=== PATIENT | female | born 1960 | race Caucasian/White ===

== ENCOUNTER 2016-12-20 10:04 | Inpatient (IN) | payer MEDICARE, OTHER ==
[~2016-12-20] VITALS: Ht 152.4 cm; Wt 49.4 kg
[2016-12-20] VITALS (15 sets, daily range): BP systolic 83–152; BP diastolic 39–83; PULSE 80–92; RESP 18–20; TEMP 97.6; Ht 152.4 cm; Wt 49.4 kg
[~2016-12-20 10:04] MED LIST: AMLO-147 PO; APR50 PO; FOLI-49 PO; LANT3I SC; LISI10TA2 PO; METO-429 PO; NEPH PO; PANT40TA4 PO
[2016-12-20] MEDS ORDERED: morphine 4 MG/ML VIAL IV STA (10:38)
[2016-12-20] MEDS ORDERED: ONDANSETRON 4 MG INJ IV STA (10:38)
[2016-12-20] MEDS ORDERED: NITROGLYCERIN 2% 1 GM OINT PKT TD STA (10:38)
--- NOTE | 2016-12-20 11:03 | RADRPT ---
PROCEDURE: XR Chest. CLINICAL INDICATION: chest pain TECHNIQUE: Single frontal view of the chest was obtained COMPARISON: 09/26/2016 FINDINGS: The heart is normal in size. There is a focal calcification in the aortic arch. There is mild left lower lobe scarring. The lungs are otherwise clear. There is no pleural effusion or pneumothorax. RPTAT: AA IMPRESSION: No acute disease. Mild left lower lobe scarring. .Jose Alejandro Hameed MD, MD Date Time Electronically viewed and signed by .Jose Alejandro Hameed MD, MD on 12/20/2016 11:03 .S/
--- NOTE | 2016-12-20 11:29 | ERA ---
ER Documentation Chief Complaint Date/Time DATE: 12/20/16 TIME: 11:24 Chief Complaint LEFT ARM PAIN X4 DAYS, NON-WORKING FISTULA ON LEFT ARM HPI 56-year-old female history of end-stage renal disease on dialysis Wednesday and Wednesday who presents with chest pain and arm pain. She describes 4 days of symptoms. The patient has a nonworking fistula to the left upper extremity. She describes moderate to severe throbbing pain to this site as well as her left chest that she describes it as pressure-like. No mid back pain, no migratory pain. The pain is somewhat worse to touch. Last dialysis was Wednesday, complete course. She denies any fevers chills or cough, no pleuritic pain. ROS All systems reviewed and are negative except as per history of present illness. Medications Home Meds Active Scripts Hydralazine Hcl* (Hydralazine Hcl*) 50 Mg Tab, 100 MG PO TID for 30 Days, TAB Prov:SHIRA BOBO NP 09/29/16 Metoprolol Tartrate* (Lopressor*) 50 Mg Tab, 50 MG PO BID for 30 Days, TAB Prov:SHIRA BOBO NP 09/29/16 Amlodipine Besylate* (Amlodipine Besylate*) 10 Mg Tablet, 10 MG PO DAILY for 30 Days, TAB Prov:SHIRA BOBO NP 09/29/16 Reported Medications Insulin Glargine* (Lantus*) 100 Unit/Ml Soln, 18 UNIT SC QHS, #1 VIAL 09/26/16 Lisinopril* (Lisinopril*) 10 Mg Tablet, 10 MG PO BID, #30 TAB 09/26/16 Pantoprazole* (Pantoprazole*) 40 Mg Tablet.dr, 40 MG PO DAILY, TAB 09/26/16 Multivit/Ca Carb/B Cmplx/Fa* (Tory-Deven*) 1 Tab Tab, 1 TAB PO DAILY, TAB 08/22/14 Folic Acid* (Folic Acid*) 1 Mg Tablet, 1 MG PO DAILY, TAB 08/22/14 Allergies Allergies: Coded Allergies: cortisone (Verified Allergy, Unknown, 09/26/16) VOMIT hydrocodone (Verified Adverse Reaction, Mild, nausea, 09/26/16) PMhx/Soc History of Surgery: Yes (cholecystectomy, r av shunt placement (2months ago)) Anesthesia Reaction: No Hx Neurological Disorder: No Hx Respiratory Disorders: No Hx Cardiac Disorders: Yes (HTN) Hx Psychiatric Problems: No Hx Miscellaneous Medical Probl: Yes (Insulin-dependent diabetes,HTN, on diaylsis MWF for past 3years) Hx Alcohol Use: No Hx Substance Use: No Hx Tobacco Use: Yes Smoking Status: Never smoker FmHx Family History: No diabetes Physical Exam Vitals Vital Signs Date Time Temp Pulse Resp B/P Pulse Ox O2 Delivery O2 Flow Rate FiO2 12/20/16 12:20 69 18 138/66 12/20/16 11:08 Nasal Cannula 2 12/20/16 11:08 86 18 198/78 98 Nasal Cannula 2.0 12/20/16 10:08 97.6 94 18 200/83 98 Physical Exam General: Much older than stated age, slightly uncomfortable secondary to pain Head: Normocephalic, atraumatic. Eyes: Pupils equally reactive, EOM intact ENT: Moist mucous membranes Neck: Supple, no lymphadenopathy Respiratory: Lungs clear bilaterally, no distress Cardiovascular: RRR, no murmurs, rubs, or gallops Abdominal: Soft, non-tender, non-distended, no peritoneal signs : Deferred MSK: Right upper extremity AV fistula with good bruit and thrill. Left upper extremity AV fistula appears to be clotted with no thrill, soft tissue tenderness diffusely along the left upper extremity mostly around the fistula site, no unilateral swelling, 5 out of 5 hand grasp strength, no evidence of compartment syndrome. Neurologic: Alert and oriented, moving all extremities, normal speech, no focal weakness, no cerebellar signs Skin: No rash Psych: Normal mood Result Diagram: 12/20/16 1130 12/20/16 1130 Results 24 hrs Laboratory Tests Test 12/20/16 11:30 Activated Partial Thromboplast Time 29.0Sec Anion Gap 24 Basophils # 0.110^3/ul Basophils % 0.4% Blood Morphology Comment Blood Urea Nitrogen 52mg/dl Calcium Level 8.2mg/dl Carbon Dioxide Level 24mmol/L Chloride Level 93mmol/L Creatinine 8.23mg/dl Eosinophils # 1.110^3/ul Eosinophils % 8.4% Glucose Level 232mg/dl Hematocrit 31.5% Hemoglobin 10.8g/dl INR International Normalized Ratio 0.86 Lymphocytes # 1.610^3/ul Lymphocytes % 12.2% Mean Corpuscular Hemoglobin 33.3pg Mean Corpuscular Hemoglobin Concent 34.2g/dl Mean Corpuscular Volume 97.3fl Mean Platelet Volume 10.6fl Monocytes # 0.710^3/ul Monocytes % 5.7% Neutrophils # 9.410^3/ul Neutrophils % 73.3% Nucleated Red Blood Cells # 0.010^3/ul Nucleated Red Blood Cells % 0.0/100WBC Platelet Count 61120^3/UL Potassium Level 6.9mmol/L Prothrombin Time 11.7Sec Prothrombin Time Ratio 0.9 Red Blood Count 3.2410^6/ul Red Cell Distribution Width 13.7% Sodium Level 134mmol/L Troponin I < 0.012ng/ml White Blood Count 12.910^3/ul Current Medications Medications (Trade) Dose Ordered Sig/Milagro Route PRN Reason Start Time Stop Time Status Last Admin Dose Admin Nitroglycerin (Nitroglycerin 2% Oint) 1 inch ONCE STAT TD 12/20/16 10:38 12/20/16 10:42 DC 12/20/16 11:13 Morphine Sulfate (morphine) 4 mg ONCE STAT IV 12/20/16 10:38 12/20/16 10:42 DC 12/20/16 11:12 Ondansetron HCl (Zofran Inj) 4 mg ONCE STAT IV 12/20/16 10:38 12/20/16 10:42 DC 12/20/16 11:13 Aspirin 324 mg 324 mg ONCE ONCE PO 12/20/16 11:30 12/20/16 11:31 DC 12/20/16 12:11 Calcium Gluconate/ Sodium Chloride (Ca Gluc/NS) 110 ml @ 110 mls/hr ONCE ONCE IVPB 12/20/16 12:00 12/20/16 12:59 Labetalol HCl (Labetalol) 20 mg ONCE ONCE IV 12/20/16 12:00 12/20/16 12:01 DC 12/20/16 12:06 Insulin Human Regular (Humulin R) 10 unit ONCE STAT IV 12/20/16 12:10 12/20/16 12:11 DC Dextrose (D50w Syringe) 50 ml ONCE STAT IV 12/20/16 12:10 12/20/16 12:11 DC Sodium Bicarbonate (Na Bicarb 8.4% Syg) 50 ml ONCE STAT IV 12/20/16 12:10 12/20/16 12:11 DC Sodium Polystyrene Sulfonate (Kayexalate) 30 gm ONCE STAT PO 12/20/16 12:33 12/20/16 12:35 DC Ondansetron HCl (Zofran Inj) 4 mg ER BRIDGE PRN IV NAUSEA AND/OR VOMITING 12/20/16 13:00 12/21/16 12:59 Acetaminophen (Tylenol Tab) 650 mg ER BRIDGE PRN PO MILD PAIN/FEVER 12/20/16 13:00 12/21/16 12:59 Procedures/MDM EKG, MONITORS, & DIAGNOSTIC IMAGING: EKG: I reviewed and interpreted a 12-lead EKG. Rhythm: Normal sinus rhythm Ectopy: None Intervals: No abnormalities ST segments: No elevations or depressions T waves: No contiguous inversions, slightly peaked T waves Repeat EKG: EKG: I reviewed and interpreted a 12-lead EKG. Rhythm: Normal sinus rhythm Ectopy: None Intervals: No abnormalities ST segments: No elevations or depressions T waves: No contiguous inversions, slightly peaked T waves Chest x-ray: I reviewed and interpreted a 1 view of the chest Mediastinum: No enlargement Cardiac silhouette: No cardiomegaly Airspace: Clear lung lynn bilaterally without evidence of pneumothorax Bones: No evidence of fracture Left upper extremity arterial duplex: Thrombosed AV fistula LAB INTERPRETATION: Hyperkalemia, negative troponin MEDICAL DECISION MAKING: The patient's history, physical exam and clinical presentation is concerning for possible cardiogenic etiology and acute coronary syndrome. The patient also seems to have a lot of reproducible tenderness on exam to the left upper extremity and chest wall. Unclear significance. The patient is having a lot of pain along her nonfunctioning AV fistula. Consider thrombosis, no evidence of DVT. This could be radiation of pain secondary to cardiac etiology. She has no mid back pain that would be concerning for dissection additionally she has 4 days of chest pain. This makes acute dissection less likely. The patient 's blood pressure is elevated but again given the duration of symptoms, reproducible symptoms I do not feel the patient requires a CT of the chest with contrast. Based on the patient's clinical exam and history and risk factors, I have a much lower clinical concern for pulmonary embolism, acute aortic dissection, pneumothorax, pneumonia, cardiac tamponade HEART Score: 4 MACE Rate: 16.6% Shared Decision Making: We had a conversation regarding risk stratification, MACE rate, and the risks, benefits, alternatives of disposition planning options. Disposition planning: Would recommend inpatient hospitalization ER COURSE: Nitroglycerin and morphine provided. Aspirin provided after chest x-ray shows normal mediastinum. The patient had EKG changes consistent with hyperkalemia. Calcium provided before potassium result. Potassium is elevated. Patient given insulin, dextrose, bicarb, Kayexalate. Her guest specialist was notified to arrange for dialysis. The patient does have a thrombosed AV fistula, this appears to be a subacute process. Her pain is well controlled. This is the likely source of her focal pain to the left upper extremity. Again low concern for dissection. Nonemergent vascular surgery consultation will be arranged by admitting team. Labetalol provided for hypertension I kept the patient and/or family informed of laboratory and diagnostic imaging results throughout the emergency room course. DISPOSITION PLAN: Telemetry admission CONSULTATION: Accepting care team and consultations: I discussed the current laboratory data, diagnostic imaging and emergency care provided. Admitting team: Dr. Padilla Calderon, her primary care provider Admitting team indication: Insurance directed, Medicare The patient is awaiting urgent dialysis. Departure Diagnosis: Primary Impression: Hyperkalemia Additional Impressions: Hemodialysis AV fistula thrombosis Qualified Code: T82.868A - Hemodialysis AV fistula thrombosis, initial encounter Chest pain Qualified Code: R07.9 - Chest pain, unspecified type End stage renal disease on dialysis Hypertensive urgency Condition: Stable ARACELI MAC MD Dec 20, 2016 11:29
[2016-12-20] MEDS ORDERED: ASPIRIN 81 MG TAB PO ONE (11:30)
--- NOTE | 2016-12-20 11:51 | RADRPT ---
PROCEDURE: US left upper extremity AV fistula/graft CLINICAL INDICATION: Renal failure TECHNIQUE: Multiple sonographic images of the left upper extremity arteries, veins and hemodialysi s access was obtained utilizing grayscale, color-flow, compressive sonography and doppler imaging. The images were reviewed on a PACS workstation. COMPARISON: None. FINDINGS: There is a left upper extremity AV fistula is thrombosed. IMPRESSION: Thrombosed left arm AV fistula. RPTAT: AA .Jose Alejandro Hameed MD, Date Time Electronically viewed and signed by .Jose Alejandro Hameed MD, on 12/20/2016 11:51 .S/
[2016-12-20 11:56] LABS: BASOPHIL # 0.1 10^3/ul (0.0-0.1); BASOPHILS % 0.4 % (0.0-2.0); EOSINOPHILS # 1.1 10^3/ul (0.0-0.5); EOSINOPHILS % 8.4 % (0.0-7.0); HEMATOCRIT 31.5 % (37.0-47.0); HEMOGLOBIN 10.8 g/dl (12.0-16.0); LYMPHOCYTES # 1.6 10^3/ul (0.8-2.9); LYMPHOCYTES % 12.2 % (15.0-51.0); MEAN CORPUSCULAR HEMOGLOBIN 33.3 pg (29.0-33.0); MEAN CORPUSCULAR HGB CONC 34.2 g/dl (32.0-37.0); MEAN CORPUSCULAR VOLUME 97.3 fl (82.0-101.0); MEAN PLATELET VOLUME 10.6 fl (7.4-10.4); MONOCYTE # 0.7 10^3/ul (0.3-0.9); MONOCYTES % 5.7 % (0.0-11.0); NEUTROPHIL # 9.4 10^3/ul (1.6-7.5); NEUTROPHILS % 73.3 % (39.0-77.0); PLATELET COUNT 178 10^3/UL (140-440); RED BLOOD COUNT 3.24 10^6/ul (4.20-5.40); RED CELL DISTRIBUTION WIDTH 13.7 % (11.5-14.5); UNCORRECTED WBC 12.9 10^3/ul (4.8-10.8); WHITE BLOOD COUNT 12.9 10^3/ul (4.8-10.8)
[2016-12-20 11:57] LABS: CONDITION 1
[2016-12-20] MEDS ORDERED: LABETALOL HCL 20MG INJ IV ONE (12:00)
[2016-12-20] MEDS ORDERED: CALCIUM GLUCONATE 10% 1 GM in SOD CHLORIDE 0.9% 100 ML IVPB ONE (12:00)
[2016-12-20 12:02] LABS: CHLORIDE 93 mmol/L (97-110); SODIUM 134 mmol/L (135-144)
[2016-12-20 12:04] LABS: INR 0.86; PROTIME 11.7 Sec (12.2-14.2); PT RATIO 0.9
[2016-12-20 12:05] LABS: BLOOD UREA NITROGEN 52 mg/dl (7-20); CARBON DIOXIDE 24 mmol/L (21-31); CREATININE 8.23 mg/dl (0.44-1.00)
[2016-12-20 12:06] LABS: CALCIUM 8.2 mg/dl (8.4-10.2); GLUCOSE 232 mg/dl (70-220)
[2016-12-20 12:08] LABS: ANION GAP 24 (8-16); POTASSIUM 6.9 mmol/L (3.5-5.1)
[2016-12-20] MEDS ORDERED: INSULIN REGULAR, HUMAN 100 UNIT/1 ML 3ML VIAL IV STA (12:10)
[2016-12-20] MEDS ORDERED: NA BICARBONATE 8.4% 50 ML SYG IV STA (12:10)
[2016-12-20] MEDS ORDERED: DEXTROSE 50% 50 ML SYRINGE IV STA (12:10)
[2016-12-20 12:18] LABS: TROPONIN-I < 0.012 ng/ml (0.00-0.12)
[2016-12-20] MEDS ORDERED: NA POLYST SULFON 15 GM/60 ML BTL PO STA (12:33)
[2016-12-20] MEDS ORDERED: ONDANSETRON 4 MG INJ IV PRN ×2 (13:00→16:30)
[2016-12-20] MEDS ORDERED: ACETAMINOPHEN 325 MG TAB PO PRN ×2 (13:00→16:30)
--- NOTE | 2016-12-20 15:33 | QN ---
Documentation Comment [id number] hp DORINA BECKER MD Dec 20, 2016 15:33
[2016-12-20] MEDS ORDERED: ACETAMINOPHEN 650 MG SUPP PR PRN (16:30)
[2016-12-20] MEDS ORDERED: BISACODYL (EC) 5 MG TAB PO PRN (16:30)
[2016-12-20] MEDS ORDERED: DOCUSATE SODIUM 100 MG CAP PO PRN (16:30)
[2016-12-20] MEDS ORDERED: NACL 0.9% 3 ML SYG IV SCH (16:30)
[2016-12-20] MEDS ORDERED: GLUCAGON 1 MG INJ IM PRN (17:00)
[2016-12-20] MEDS ORDERED: DEXTROSE 50% 50 ML SYRINGE IV PRN ×2 (17:00)
[2016-12-20] MEDS ORDERED: GLUCOSE GEL 15 GRAM TUBE BUCCAL PRN (17:00)
[2016-12-20] MEDS ORDERED: GLUCOSE GEL 15 GRAM TUBE PO PRN ×2 (17:00)
[2016-12-20] MEDS: CEFTRIAXONE 1 GM/NS 50 ML IVPB SCH (17:19)
[2016-12-20] MEDS: HYDROmorphONE 1 MG/ML SYG IV PRN (17:19)
[2016-12-20 17:20] LABS: CREATINE KINASE 108 IU/L (23-200)
[2016-12-20 17:29] LABS: CK-MB 4.03 ng/ml (0.0-2.4)
[2016-12-20 17:34] LABS: TROPONIN-I < 0.012 ng/ml (0.00-0.12)
[2016-12-20] MEDS: INSULIN ASPART [NOVOLOG] 3 ML PEN SC SCH ×2 (18:31→22:45)
[2016-12-20] MEDS: METOCLOPRAMIDE 10 MG INJ IV PRN (19:38)
[2016-12-20] MEDS ORDERED: INSULIN GLARGINE [LANtus] 3 ML PEN SC SCH (21:00)
[2016-12-20 22:40] LABS: CREATINE KINASE 111 IU/L (23-200)
[2016-12-20] MEDS: ONDANSETRON 4 MG INJ IV PRN (22:41)
[2016-12-20] MEDS: LISINOPRIL 10 MG TAB PO SCH (22:41)
[2016-12-20] MEDS: METOPROLOL 50 MG TAB PO SCH (22:42)
[2016-12-20] MEDS: HEPARIN 5,000 UNIT/0.5 ML SYG SC SCH (22:44)
[2016-12-20 22:50] LABS: CK-MB 3.57 ng/ml (0.0-2.4)
[2016-12-20 23:09] LABS: TROPONIN-I < 0.012 ng/ml (0.00-0.12)
[2016-12-21] VITALS (13 sets, daily range): BP systolic 105–137; BP diastolic 51–62; PULSE 63–81; RESP 17–20
[2016-12-21] MEDS: ZOLPIDEM 5 MG TAB PO PRN ×2 (02:01→23:31)
[2016-12-21] MEDS: PANTOPRAZOLE (EC) 40 MG TAB PO SCH (05:40)
[2016-12-21] MEDS: METOCLOPRAMIDE 10 MG INJ IV PRN (05:43)
--- NOTE | 2016-12-21 06:53 | HP ---
DATE OF ADMISSION: 12/20/2016 HISTORY OF PRESENT ILLNESS: The patient with history of ESRD, hypertension, diabetes mellitus, presented with left upper extremity AV graft pain, site pain and swelling going all the way to the hand and also to the breast area. Patient is going to be admitted for further management. PAST MEDICAL HISTORY: Positive for hypertension, ESRD, diabetes mellitus, anemia, history of multiple AV valve thrombectomy, history of diabetic nephropathy, retinopathy, neuropathy, history of multiple AV graft revision, history of AV fistula placement in the right upper extremity, clotted AV graft in the upper extremity, history of catheter in the past placement and removal. ALLERGY HISTORY: CORTISONE AND HYDROCODONE. SOCIAL HISTORY: Negative. FAMILY HISTORY: Noncontributory. MEDICATION HISTORY: Positive for, the patient is on: 1. Amlodipine. 2. Folic acid. 3. Hydralazine. 4. Insulin. 5. Lisinopril. 6. Metoprolol. 7. Multiple vitamins. 8. Protonix. REVIEW OF SYSTEMS: HEENT: Unremarkable. RESPIRATORY: Unremarkable. CARDIOVASCULAR: Unremarkable. ABDOMEN: As mentioned above, pain in the upper left side of the abdomen and chest wall, better now. EXTREMITIES: Pain in the left upper extremity, to the hand noted. Extremities unremarkable. CENTRAL NERVOUS SYSTEM: Unremarkable. PHYSICAL EXAMINATION: GENERAL: The patient is awake, alert. VITAL SIGNS: Pulse 72, blood pressure 132/66. HEAD: Atraumatic, normocephalic. Pupils equal, reactive to light. NECK: Supple. No JVD. LUNGS: Clear. CARDIOVASCULAR: S1, S2 is normal. Systolic murmur. ABDOMEN: Soft, nontender. Bowel sounds present. No palpable mass or hepatosplenomegaly. EXTREMITIES: No cyanosis, clubbing. Edema positive. The patient has a fistula in the right upper extremity working well. Left arm has a clotted graft that is painful on touch and tenderness. CENTRAL NERVOUS SYSTEM: The patient is awake, alert, no focal deficit. LABORATORY DATA: Patient has WBC 12.9, hematocrit 31.5, platelet count of . Potassium 6.2, sodium 134. BUN 52, creatinine 8.23, glucose 232. The patient' s chest x-ray shows no acute disease, mild left lower lobe scarring, thrombosed left upper arm AV fistula with ultrasound. IMPRESSION: 1. Left arm pain, rule out phlebitis. Rule out infected arteriovenous fistula. 2. Hyperkalemia. 3. Hypertension. 4. Diabetes mellitus. 5. Anemia. 6. End-stage renal disease. 7. Multiple revisions thrombectomy. 8. Electrolyte imbalance. PLAN: patient renal diet, hemodialysis, Kayexalate, antibiotic, vascular surgery consultation with Dr. Maxi Gu and Dr. Alonzo who has placed his AV fistula Dictated By: DORINA BECKER MD BS/NTS Conf#: [id number] DID#: [id number] MTDD
[2016-12-21 07:32] LABS: BASOPHILS % 0.5 % (0.0-2.0); EOSINOPHILS # 0.5 10^3/ul (0.0-0.5); EOSINOPHILS % 6.2 % (0.0-7.0); HEMATOCRIT 28.2 % (37.0-47.0); HEMOGLOBIN 9.7 g/dl (12.0-16.0); LYMPHOCYTES # 1.7 10^3/ul (0.8-2.9); LYMPHOCYTES % 18.7 % (15.0-51.0); MEAN CORPUSCULAR HEMOGLOBIN 33.8 pg (29.0-33.0); MEAN CORPUSCULAR HGB CONC 34.3 g/dl (32.0-37.0); MEAN CORPUSCULAR VOLUME 98.6 fl (82.0-101.0); MEAN PLATELET VOLUME 10.2 fl (7.4-10.4); MONOCYTE # 0.7 10^3/ul (0.3-0.9); MONOCYTES % 7.7 % (0.0-11.0); NEUTROPHIL # 5.9 10^3/ul (1.6-7.5); NEUTROPHILS % 66.9 % (39.0-77.0); PLATELET COUNT 152 10^3/UL (140-440); RED BLOOD COUNT 2.86 10^6/ul (4.20-5.40); RED CELL DISTRIBUTION WIDTH 13.7 % (11.5-14.5); UNCORRECTED WBC 8.8 10^3/ul (4.8-10.8); WHITE BLOOD COUNT 8.8 10^3/ul (4.8-10.8)
[2016-12-21 07:35] LABS: CONDITION 1
[2016-12-21 07:51] LABS: POTASSIUM 4.3 mmol/L (3.5-5.1)
[2016-12-21 07:54] LABS: CREATININE 5.21 mg/dl (0.44-1.00)
[2016-12-21 07:55] LABS: CALCIUM 8.1 mg/dl (8.4-10.2)
[2016-12-21] MEDS: INSULIN ASPART [NOVOLOG] 3 ML PEN SC SCH ×5 (07:55→21:00)
[2016-12-21] MEDS: FOLIC ACID 1 MG TAB PO SCH (08:16)
[2016-12-21] MEDS: MULTIVIT/CA CARB/B CMPLX/FA TAB PO SCH (08:16)
[2016-12-21] MEDS: METOPROLOL 50 MG TAB PO SCH ×2 (08:17→21:38)
[2016-12-21] MEDS: AMLODIPINE 10 MG TAB PO SCH (08:18)
[2016-12-21] MEDS: LISINOPRIL 10 MG TAB PO SCH ×2 (08:18→21:38)
[2016-12-21] MEDS: HEPARIN 5,000 UNIT/0.5 ML SYG SC SCH ×2 (08:19→21:37)
[2016-12-21] MEDS ORDERED: PANTOPRAZOLE (EC) 40 MG TAB PO SCH (09:00)
[2016-12-21] MEDS ORDERED: ENOXAPARIN 30 MG/0.3 ML SYG SC SCH (09:00)
[2016-12-21] MEDS ORDERED: CEFTRIAXONE 1 GM INJ IVPB SCH (09:00)
[2016-12-21] MEDS ORDERED: VANCOMYCIN 1 GM (PMX) 250 ML IVPB SCH (14:00)
--- NOTE | 2016-12-21 15:39 | RADRPT ---
PROCEDURE: Bilateral lower extremity venous mapping. CLINICAL INDICATION: Preoperative for CABG. TECHNIQUE: The greater saphenous vein was evaluated bilaterally with ultrasound in the axial and s agittal planes. Diameter of the veins were determined as indicated below. COMPARISON: No prior studies are available for comparison. FINDINGS: Right greater saphenous vein: At groin: 0.42 cm. Upper thigh: 0.16 cm. Mid thigh: 0.16 cm. Lower thigh: 0.19 cm. At knee: 0.23 cm. Upper calf: 0.14 cm. Mid calf: 0.19 cm. Ankle: 0.14 cm. Left greater saphenous vein: At groin: 0.36 cm. Upper thigh: 0.27 cm. Mid thigh: 0.20 cm. Lower thigh: 0.17 cm. At knee: 0.16 cm. Upper calf: 0.14 cm. Mid calf: 0.20 cm. Ankle: 0.21 cm. The greater saphenous veins demonstrate normal compressibility with no thrombus or occlusion. IMPRESSION: 1. Diameter of greater saphenous veins as indicated above. 2. No thrombosis visualized. RPTAT: QQ .Alfredo Manning MD, Date Time Electronically viewed and signed by .Alfredo Manning MD, on 12/21/2016 15:38 .R/
[2016-12-21] MEDS: CEFTRIAXONE 1 GM/NS 50 ML IVPB SCH (17:42)
[2016-12-21] MEDS ORDERED: IODIXANOL LOCM 100 ML BTL ONE (17:57)
[2016-12-21] MEDS ORDERED: SOD CHLORIDE 0.9% 100 ML ONE (17:57)
[2016-12-21] MEDS ORDERED: IODIXANOL LOCM 50 ML BTL ONE (17:57)
--- NOTE | 2016-12-21 20:03 | PN ---
Date/Time of Note Date/Time of Note DATE: 12/21/16 TIME: 20:02 Assessment/Plan VTE Prophylaxis VTE Prophylaxis Intervention: other Lines/Catheters IV [facility]ter [facility]from [facility]): [facility] Urinary Cath still in place: No Assessment/Plan Chief Complaint/Hosp Course IMPRESSION: 1. Left arm pain, rule out phlebitis. Rule out infected arteriovenous fistula. 2. Hyperkalemia. 3. Hypertension. 4. Diabetes mellitus. 5. Anemia. 6. End-stage renal disease. 7. Multiple AVF revisions thrombectomy. 8. Electrolyte imbalance. PLAN HD PER DR SANCHEZ Problems: Subjective 24 Hr Interval Summary Gastrointestinal: no complaints Genitourinary: no complaints Musculoskeletal: other (LEFT ARM PAIN+) Exam/Review of Systems Vital Signs Vitals Vital Signs Date Time Temp Pulse Resp B/P Pulse Ox O2 Delivery O2 Flow Rate FiO2 12/21/16 17:40 75 12/21/16 16:13 99.5 20 124/59 98 12/20/16 16:56 Room Air 12/20/16 11:08 2 Intake and Output 12/20/16 12/20/16 12/21/16 15:00 23:00 07:00 Intake Total 650 ml 400 ml Output Total 2000 ml 2200 ml Balance -1350 ml -1800 ml Exam Respiratory: diminished breath sounds Cardiovascular: regular rate and rhythm Gastrointestinal: soft Musculoskeletal: other (LEFT AVF TENDER+) Results Result Diagram: 12/21/1628 12/21/1628 Results 24 hrs Laboratory Tests Test 12/20/16 22:00 12/20/16 22:39 12/21/16 06:28 12/21/16 07:55 Creatine Kinase 111 Creatine Kinase Index 3.2 Creatinine Kinase MB (Mass) 3.57 H Troponin I < 0.012 Bedside Glucose 168 44 *L Anion Gap 18 H Basophils # 0.0 Basophils % 0.5 Blood Urea Nitrogen 25 #H Calcium Level 8.1 L Carbon Dioxide Level 34 #H Chloride Level 92 L Creatinine 5.21 #H Eosinophils # 0.5 Eosinophils % 6.2 Glucose Level 47 #*L Hematocrit 28.2 L Hemoglobin 9.7 L Hemoglobin A1c 10.5 H Lymphocytes # 1.7 Lymphocytes % 18.7 Mean Corpuscular Hemoglobin 33.8 H Mean Corpuscular Hemoglobin Concent 34.3 Mean Corpuscular Volume 98.6 Mean Platelet Volume 10.2 Monocytes # 0.7 Monocytes % 7.7 Neutrophils # 5.9 Neutrophils % 66.9 Nucleated Red Blood Cells # 0.0 Nucleated Red Blood Cells % 0.0 Platelet Count 152 Potassium Level 4.3 # Red Blood Count 2.86 L Red Cell Distribution Width 13.7 Sodium Level 140 White Blood Count 8.8 # Test 12/21/16 08:27 12/21/16 09:19 12/21/16 11:33 12/21/16 17:34 Bedside Glucose 114 198 379 H 356 H Medications Medications Current Medications Amlodipine Besylate (Norvasc) 10 mg DAILY PO Last administered on 12/21/16 08: 18; Admin Dose 10 MG; Start 12/21/16 at 09:00 Folic Acid (Folic Acid) 1 mg DAILY PO Last administered on 12/21/16 08:16; Admin Dose 1 MG; Start 12/21/16 at 09:00 Hydralazine HCl (Apresoline) 100 mg TID PO Last administered on 12/21/16 08:17 ; Admin Dose 100 MG; Start 12/20/16 at 21:00 Lisinopril (Zestril) 10 mg BID PO Last administered on 12/21/16 08:18; Admin Dose 10 MG; Start 12/20/16 at 21:00 Metoprolol Tartrate (Lopressor) 50 mg BID PO Last administered on 12/21/16 08: 17; Admin Dose 50 MG; Start 12/20/16 at 21:00 Multivit/Ca Carb/ B Cmplx/FA/Prenat (Tory-Deven) 1 tab DAILY PO Last administered on 12/21/16 08:16; Admin Dose 1 TAB; Start 12/21/16 at 09:00 Acetaminophen (Tylenol Tab) 650 mg Q6H PRN PO PAIN LEVEL 1-3 OR FEVER; Start at 16:30 Acetaminophen (Tylenol Supp) 650 mg Q6H PRN PA PAIN LEVEL 1-3 OR FEVER; Start 12/20/16 at 16:30 Hydromorphone HCl (Dilaudid) 0.5 mg Q4H PRN IV SEVERE PAIN LEVEL 7-10 Last administered on 12/20/16 17:19; Admin Dose 0.5 MG; Start 12/20/16 at 16:30 Docusate Sodium (Colace) 100 mg Q12H PRN PO CONSTIPATION; Start 12/20/16 at 16: 30 Bisacodyl (Dulcolax) 5 mg DAILY PRN PO CONSTIPATION; Start 12/20/16 at 16:30 Zolpidem Tartrate (Ambien) 5 mg QHS PRN PO SLEEP Last administered on 02:01; Admin Dose 5 MG; Start 12/20/16 at 16:30 Pantoprazole (Protonix Tab) 40 mg DAILY@06 PO Last administered on 12/21/16 05 :40; Admin Dose 40 MG; Start 12/21/16 at 06:00 Miscellaneous Information 1 ea NOTE XX ; Start 12/20/16 at 17:00 Glucose (Glutose) 15 gm Q15M PRN PO DECREASED GLUCOSE; Start 12/20/16 at 17:00 Glucose (Glutose) 22.5 gm Q15M PRN PO DECREASED GLUCOSE; Start 12/20/16 at 17: 00 Dextrose (D50w Syringe) 25 ml Q15M PRN IV DECREASED GLUCOSE; Start 12/20/16 at 17:00 Dextrose (D50w Syringe) 50 ml Q15M PRN IV DECREASED GLUCOSE; Start 12/20/16 at 17:00 Glucagon (Glucagen) 1 mg Q15M PRN IM DECREASED GLUCOSE; Start 12/20/16 at 17:00 Glucose 15 gm 15 gm Q15M PRN BUCCAL DECREASED GLUCOSE; Start 12/20/16 at 17:00 Ceftriaxone Sodium (Rocephin) 50 ml @ 100 mls/hr Q24H IVPB Last administered on 12/21/16 17:42; Admin Dose 100 MLS/HR; Start 12/20/16 at 17:00 Heparin Sodium (Porcine) (Heparin (5000 Units/0.5 ml)) 5,000 unit BID SC Last administered on 12/21/16 08:19; Admin Dose 5,000 UNIT; Start 12/20/16 at 21:00 Metoclopramide HCl (Reglan) 10 mg Q8 PRN IV NAUSEA AND/OR VOMITING Last administered on 12/21/16 05:43; Admin Dose 10 MG; Start 12/20/16 at 19:30 Ondansetron HCl (Zofran Inj) 4 mg Q4 PRN IV NAUSEA AND/OR VOMITING Last administered on 12/20/16 22:41; Admin Dose 4 MG; Start 12/20/16 at 21:00 Insulin Glargine (Lantus) 10 unit DAILY@20 SC ; Start 12/21/16 at 20:00 Diagnostic Test (Pha) 1 ea 1 ea 02 XX ; Start 12/22/16 at 02:00 Vancomycin HCl (Vancocin) 250 ml @ 125 mls/hr ONCE IVPB Last administered on 15:09; Admin Dose 125 MLS/HR; Start 12/21/16 at 14:00; Stop 12/21/16 at 23:00 DORINA BECKER MD Dec 21, 2016 20:03
[2016-12-21] MEDS: INSULIN GLARGINE [LANtus] 3 ML PEN SC SCH (21:36)
[2016-12-21] MEDS: ACCUCHECK XX SCH (22:47)
[2016-12-22] VITALS (13 sets, daily range): BP systolic 123–204; BP diastolic 55–86; PULSE 60–93; RESP 17–20
[2016-12-22] MEDS: PANTOPRAZOLE (EC) 40 MG TAB PO SCH (04:20)
[2016-12-22] MEDS: INSULIN ASPART [NOVOLOG] 3 ML PEN SC SCH ×7 (07:55→20:56)
[2016-12-22 08:17] LABS: ALBUMIN 3.8 g/dl (3.3-4.9); POTASSIUM 4.3 mmol/L (3.5-5.1)
[2016-12-22 08:20] LABS: ALBUMIN/GLOBULIN RATIO 1.52; CREATININE 7.79 mg/dl (0.44-1.00); TOTAL PROTEIN 6.3 g/dl (6.1-8.1)
[2016-12-22 08:21] LABS: CALCIUM 7.8 mg/dl (8.4-10.2)
[2016-12-22] MEDS: MULTIVIT/CA CARB/B CMPLX/FA TAB PO SCH (08:22)
[2016-12-22] MEDS: METOPROLOL 50 MG TAB PO SCH ×2 (08:23→20:55)
[2016-12-22] MEDS: AMLODIPINE 10 MG TAB PO SCH (08:23)
[2016-12-22] MEDS: FOLIC ACID 1 MG TAB PO SCH (08:24)
[2016-12-22] MEDS: LISINOPRIL 10 MG TAB PO SCH ×2 (08:24→20:56)
[2016-12-22] MEDS: HEPARIN 5,000 UNIT/0.5 ML SYG SC SCH ×2 (08:32→21:06)
[2016-12-22 09:18] LABS: BASOPHILS % 0.5 % (0.0-2.0); EOSINOPHILS # 1.2 10^3/ul (0.0-0.5); EOSINOPHILS % 11.8 % (0.0-7.0); HEMATOCRIT 27.4 % (37.0-47.0); HEMOGLOBIN 9.4 g/dl (12.0-16.0); LYMPHOCYTES # 2.3 10^3/ul (0.8-2.9); LYMPHOCYTES % 22.5 % (15.0-51.0); MEAN CORPUSCULAR HEMOGLOBIN 33.7 pg (29.0-33.0); MEAN CORPUSCULAR HGB CONC 34.1 g/dl (32.0-37.0); MEAN CORPUSCULAR VOLUME 98.8 fl (82.0-101.0); MEAN PLATELET VOLUME 10.5 fl (7.4-10.4); MONOCYTE # 1.1 10^3/ul (0.3-0.9); MONOCYTES % 10.5 % (0.0-11.0); NEUTROPHIL # 5.5 10^3/ul (1.6-7.5); NEUTROPHILS % 54.7 % (39.0-77.0); PLATELET COUNT 174 10^3/UL (140-440); RED BLOOD COUNT 2.78 10^6/ul (4.20-5.40); RED CELL DISTRIBUTION WIDTH 13.9 % (11.5-14.5)
[2016-12-22 09:26] LABS: CONDITION 1; LH ANALYZER COMMENTS 1; SUSPECT 1; UNCORRECTED WBC 10.9 10^3/ul (4.8-10.8)
--- NOTE | 2016-12-22 09:44 | HP ---
DATE OF ADMISSION: 12/20/2016 VASCULAR SURGERY CONSULTATION Dear Doctors, Ms. Galvez is a 56-year-old female with a history of end-stage renal disease, with a plethora of med ical conditions, known to our vascular surgery service, whom has presented with upper extremity tracey n, discomfort, and swelling. Upon our discussion with the patient, it seems that this started over the course of the past week. The patient has had a history of bilateral upper extremity fistula cre ations and it seems that this was done at an outside hospital by other surgeons, and it seems that t he patient has a nonfunctional AV graft in the left upper extremity. She cannot recall how long ago that was placed. At the moment, the patient has a right upper extremity fistula which we had helpe d revise and has been functional without any issues currently. She receives her dialysis sessions o n Wednesday, Wednesday, Wednesday scheduling. She denies any lower extremity rest pain. She does have so me disabling claudication. REVIEW OF SYSTEMS: A 12-point review performed and negative except what is mentioned in the HPI. PAST MEDICAL HISTORY: Entails hypertension, end-stage renal disease, diabetes, anemia of chronic di sease, diabetic nephropathy, diabetic retinopathy, diabetic neuropathy. PAST SURGICAL HISTORY: Multiple chest wall catheters, multiple bilateral upper extremity fistula cr eations, and multiple thrombectomies of the left upper extremity AV graft. ALLERGIES: 1. CORTISONE. 2. HYDROCODONE. SOCIAL HISTORY: Denies tobacco, alcohol, or illicit drug use. FAMILY HISTORY: Diabetes and coronary artery disease. PHYSICAL EXAMINATION: GENERAL: Alert and oriented x3, no apparent distress. HEENT: Normocephalic, atraumatic. PERRLA, EOMI. Mucosa moist. NECK: Supple. No carotid bruit. PULMONARY: Clear to auscultation bilaterally. No crackles. CARDIOVASCULAR: S1, S2 present. No murmurs. ABDOMEN: Soft, nontender, nondistended. Bowel sounds positive. EXTREMITIES: Lower extremities: Palpable femoral pulses, nonpalpable pedal pulses. Motor and sens ory intact. Capillary refill 3 seconds. No ulcers identified. Upper extremities: Right upper ext remity with palpable brachial pulse. Motor and sensory intact. Cap refill 2 to 3 seconds. Surgica l scar is well healed. She has what seems to be a brachiobasilic fistula that has bruit and thrill present. Left upper extremity: Palpable brachial pulse. Motor and sensory intact. Capillary refi ll 2 to 3 seconds. There is a previous surgical scar that is well healed; however, there is tendern ess over what seems to be a site of erythema and tenderness in the anterolateral aspect that seems t o be travel an AV graft. ASSESSMENT AND PLAN: End-stage renal disease: It seems the patient may have developed an infection of a left upper extremity arteriovenous graft has been nonfunctional, has been thrombosed. We will plan to obtain a CT angiography to better delineate the anatomy of this arteriovenous graft and its association with how closely it comes to arterial anastomosis. We will plan to investigate this an d for ligation/excision of this infected graft. The patient may require revascularization, for whic h will plan to obtain bilateral lower extremity vein mappings. Optimize vascular status (BP meds, diet, nutrition, exercise, sugar control, antiplatelets). We will plan to schedule the patient for the coming days. Continue with antibiotics per infectious disease recommendations. Thank you for allowing us to partake in the care of your patient. Please call with any questions. Discussed findings, plan and management with the patient and her son at the bedside and they underst and, with a certified gyroscopic instrument mechanic. Dictated By: LAURA HOLDEN/KYLIE Conf#: [id number] DID#: [id number]
[2016-12-22] MEDS: HYDROmorphONE 1 MG/ML SYG IV PRN (12:41)
--- NOTE | 2016-12-22 14:19 | RADRPT ---
PROCEDURE: CT left upper extremity with intravenous contrast. CLINICAL INDICATION: Left arm pain. History of left upper extremity dialysis fistula. TECHNIQUE: CT scan of the left upper extremity with intravenous contrast was performed. Helical ax ial sections were obtained through the left upper extremity during intravenous injection of 70 ml Vi sipaque 320. Coronal and sagittal reformatted images were obtained from the axial source images. Im ages were reviewed on a high-resolution PACS workstation. In addition, three-dimensional post proces sing was performed. Total exam DLP is 1481.65 mGy-cm. CTDIvol is 22.46 mGy. One or more of the [facility] dose reduction techniques were used: Automated exposure control, adjustment of the mA and/or kV according to patient size, use of iterative reconstruction technique. COMPARISON: Left upper extremity Doppler study dated 12/20/2016. FINDINGS: As seen on the prior study, there is a completely thrombosed dialysis fistula in the upper arm. The venous system of the left upper extremity is otherwise patent. There is no fluid collection, ma ss, or region of abnormal enhancement. The osseous structures are normal with no fracture or lytic lesion. IMPRESSION: 1. Completely thrombosed dialysis fistula in the upper arm. 2. Otherwise normal venous system of the left upper extremity. 3. No mass, fluid collection, or other abnormality. RPTAT: QQ .Alfredo Manning MD, Date Time Electronically viewed and signed by .Alfredo Manning MD, MD on 12/22/2016 14:19 .R/
[2016-12-22] MEDS: ONDANSETRON 4 MG INJ IV PRN (16:52)
[2016-12-22] MEDS ORDERED: ALBUMIN HUMAN 25% 100 ML IV PRN (17:30)
[2016-12-22] MEDS: ALBUMIN HUMAN 25% 200 ML IV PRN ×2 (18:18→18:19)
[2016-12-22] MEDS: hydrALAzine 20 MG INJ IV PRN (18:46)
[2016-12-22] MEDS: INSULIN GLARGINE [LANtus] 3 ML PEN SC SCH (20:00)
[2016-12-22] MEDS: CEFTRIAXONE 1 GM/NS 50 ML IVPB SCH (20:49)
--- NOTE | 2016-12-22 20:50 | PN ---
Date/Time of Note Date/Time of Note DATE: 12/22/16 TIME: 20:49 Assessment/Plan VTE Prophylaxis VTE Prophylaxis Intervention: other Lines/Catheters IV C[facility] Type (from [facility]): Saline Lock Urinary Cath still in place: No Assessment/Plan Chief Complaint/Hosp Course IMPRESSION: 1. Left arm pain, rule out phlebitis. Rule out infected arteriovenous fistula. 2. Hyperkalemia.BETTER 3. Hypertension. 4. Diabetes mellitus. 5. Anemia. 6. End-stage renal disease. 7. Multiple AVF revisions thrombectomy. 8. Electrolyte imbalance. PLAN HD PER DR SANCHEZ ANTIBIOTIC Problems: Subjective 24 Hr Interval Summary Constitutional: improved Cardiovascular: no complaints Gastrointestinal: no complaints Genitourinary: no complaints Exam/Review of Systems Vital Signs Vitals Vital Signs Date Time Temp Pulse Resp B/P Pulse Ox O2 Delivery O2 Flow Rate FiO2 12/22/16 20:00 98.6 93 17 148/68 95 12/20/16 16:56 Room Air 12/20/16 11:08 2 Intake and Output 12/21/16 12/21/16 12/22/16 15:00 23:00 07:00 Intake Total 1100 ml Balance 1100 ml Exam Neck: supple Respiratory: clear to auscultation Cardiovascular: regular rate and rhythm Gastrointestinal: soft Musculoskeletal: nl extremities to inspection Extremities: normal pulses Results Result Diagram: 12/22/16 0740 12/22/16 0740 Results 24 hrs Laboratory Tests Test 12/21/16 21:30 12/22/16 07:40 12/22/16 08:10 12/22/16 08:43 Bedside Glucose 136 61 L 66 L Alanine Aminotransferase (ALT/SGPT) 21 Albumin 3.8 Albumin/Globulin Ratio 1.52 Alkaline Phosphatase 323 H Anion Gap 22 H Aspartate Amino Transf (AST/SGOT) 34 Basophils # 0.0 Basophils % 0.5 Blood Morphology Comment Blood Urea Nitrogen 39 #H Calcium Level 7.8 L Carbon Dioxide Level 28 Chloride Level 91 L Creatinine 7.79 #H Direct Bilirubin 0.00 Eosinophils # 1.2 H Eosinophils % 11.8 H Globulin 2.50 Glucose Level 45 *L Hematocrit 27.4 L Hemoglobin 9.4 L Indirect Bilirubin 0.0 Lymphocytes # 2.3 Lymphocytes % 22.5 Mean Corpuscular Hemoglobin 33.7 H Mean Corpuscular Hemoglobin Concent 34.1 Mean Corpuscular Volume 98.8 Mean Platelet Volume 10.5 H Monocytes # 1.1 H Monocytes % 10.5 Neutrophils # 5.5 Neutrophils % 54.7 Nucleated Red Blood Cells # 0.0 Nucleated Red Blood Cells % 0.0 Platelet Count 174 Potassium Level 4.3 Red Blood Count 2.78 L Red Cell Distribution Width 13.9 Sodium Level 137 Total Bilirubin 0.0 L Total Protein 6.3 White Blood Count 10.0 Test 12/22/16 09:02 12/22/16 11:25 12/22/16 17:25 12/22/16 20:31 Bedside Glucose 80 264 H 180 190 Medications Medications Current Medications Amlodipine Besylate (Norvasc) 10 mg DAILY PO Last administered on 12/22/16 08: 23; Admin Dose 10 MG; Start 12/21/16 at 09:00 Folic Acid (Folic Acid) 1 mg DAILY PO Last administered on 12/22/16 08:24; Admin Dose 1 MG; Start 12/21/16 at 09:00 Hydralazine HCl (Apresoline) 100 mg TID PO Last administered on 12/22/16 12:39 ; Admin Dose 100 MG; Start 12/20/16 at 21:00 Lisinopril (Zestril) 10 mg BID PO Last administered on 12/22/16 08:24; Admin Dose 10 MG; Start 12/20/16 at 21:00 Metoprolol Tartrate (Lopressor) 50 mg BID PO Last administered on 12/22/16 08: 23; Admin Dose 50 MG; Start 12/20/16 at 21:00 Multivit/Ca Carb/ B Cmplx/FA/Prenat (Tory-Deven) 1 tab DAILY PO Last administered on 12/22/16 08:22; Admin Dose 1 TAB; Start 12/21/16 at 09:00 Acetaminophen (Tylenol Tab) 650 mg Q6H PRN PO PAIN LEVEL 1-3 OR FEVER Last administered on 12/21/16 21:37; Admin Dose 650 MG; Start 12/20/16 at 16:30 Acetaminophen (Tylenol Supp) 650 mg Q6H PRN [place] PAIN LEVEL 1-3 OR FEVER; Start 12/20/16 at 16:30 Hydromorphone HCl (Dilaudid) 0.5 mg Q4H PRN IV SEVERE PAIN LEVEL 7-10 Last administered on 12/22/16 12:41; Admin Dose 0.5 MG; Start 12/20/16 at 16:30 Docusate Sodium (Colace) 100 mg Q12H PRN PO CONSTIPATION; Start 12/20/16 at 16: 30 Bisacodyl (Dulcolax) 5 mg DAILY PRN PO CONSTIPATION; Start 12/20/16 at 16:30 Zolpidem Tartrate (Ambien) 5 mg QHS PRN PO SLEEP Last administered on 23:31; Admin Dose 5 MG; Start 12/20/16 at 16:30 Pantoprazole (Protonix Tab) 40 mg DAILY@06 PO Last administered on 12/21/16 05 :40; Admin Dose 40 MG; Start 12/21/16 at 06:00 Miscellaneous Information 1 ea NOTE XX ; Start 12/20/16 at 17:00 Glucose (Glutose) 15 gm Q15M PRN PO DECREASED GLUCOSE; Start 12/20/16 at 17:00 Glucose (Glutose) 22.5 gm Q15M PRN PO DECREASED GLUCOSE; Start 12/20/16 at 17: 00 Dextrose (D50w Syringe) 25 ml Q15M PRN IV DECREASED GLUCOSE; Start 12/20/16 at 17:00 Dextrose (D50w Syringe) 50 ml Q15M PRN IV DECREASED GLUCOSE; Start 12/20/16 at 17:00 Glucagon (Glucagen) 1 mg Q15M PRN IM DECREASED GLUCOSE; Start 12/20/16 at 17:00 Glucose 15 gm 15 gm Q15M PRN BUCCAL DECREASED GLUCOSE; Start 12/20/16 at 17:00 Ceftriaxone Sodium (Rocephin) 50 ml @ 100 mls/hr Q24H IVPB Last administered on 12/21/16 17:42; Admin Dose 100 MLS/HR; Start 12/20/16 at 17:00 Heparin Sodium (Porcine) (Heparin (5000 Units/0.5 ml)) 5,000 unit BID SC Last administered on 12/22/16 08:32; Admin Dose 5,000 UNIT; Start 12/20/16 at 21:00 Metoclopramide HCl (Reglan) 10 mg Q8 PRN IV NAUSEA AND/OR VOMITING Last administered on 12/21/16 05:43; Admin Dose 10 MG; Start 12/20/16 at 19:30 Ondansetron HCl (Zofran Inj) 4 mg Q4 PRN IV NAUSEA AND/OR VOMITING Last administered on 12/22/16 16:52; Admin Dose 4 MG; Start 12/20/16 at 21:00 Insulin Glargine (Lantus) 10 unit DAILY@20 SC Last administered on 12/21/16 21 :36; Admin Dose 10 UNIT; Start 12/21/16 at 20:00 Diagnostic Test (Pha) (Accucheck) 1 ea 02 XX ; Start 12/22/16 at 02:00 Hydralazine HCl (Apresoline) 10 mg Q6H PRN IV ELEVATED BLOOD PRESSURE Last administered on 12/22/16 18:46; Admin Dose 10 MG; Start 12/22/16 at 19:00 DORINA BECKER MD Dec 22, 2016 20:50
[2016-12-22] MEDS: ZOLPIDEM 5 MG TAB PO PRN (22:27)
--- NOTE | 2016-12-22 23:08 | PN ---
Date/Time of Note Date/Time of Note DATE: 12/22/16 TIME: 23:08 Assessment/Plan Lines/Catheters IV Catheter Type (from [facility]): Saline Lock [place] in Place (from [facility]): No Assessment/Plan Chief Complaint/Hosp Course -End-stage renal disease: It seems the patient may have developed an infection of a left upper extremity arteriovenous graft has been nonfunctional and has been thrombosed. Will plan to investigate this and for ligation/excision of this infected graft. The patient may require revascularization, for which will plan to obtain bilateral lower extremity vein mappings. -Optimize vascular status (BP meds, diet, nutrition, exercise, sugar control, antiplatelets). -Continue with antibiotics per infectious disease recommendations. -Thank you for allowing us to partake in the care of your patient. Please call with any questions. -Discussed findings, plan and management with the patient and her son at the bedside and they understand, with a certified supervisor transcribing operators. Problems: Subjective 24 Hr Interval Summary no new vascular events overnight Exam/Review of Systems Vital Signs Vitals Vital Signs Date Time Temp Pulse Resp B/P Pulse Ox O2 Delivery O2 Flow Rate FiO2 12/23/16 06:09 98.9 76 16 173/77 95 Room Air 12/20/16 11:08 2 Intake and Output 12/22/16 12/22/16 12/23/16 15:00 23:00 07:00 Intake Total 600 ml 100 ml Output Total 500 ml Balance 100 ml 100 ml Exam Free Text/Dictation GENERAL: Alert and oriented x3 PULMONARY: Clear to auscultation bilaterally CARDIOVASCULAR: S1, S2 present. ABDOMEN: Soft, nontender, nondistended. Bowel sounds positive. EXTREMITIES: Lower extremities: Palpable femoral pulses, nonpalpable pedal pulses. Motor and sensory intact. Capillary refill 3 seconds. No ulcers identified. Upper extremities: Right upper extremity with palpable brachial pulse. Motor and sensory intact. Cap refill 2 to 3 seconds. Surgical scar is well healed. She has what seems to be a brachiobasilic fistula that has bruit and thrill present. Left upper extremity: Palpable brachial pulse. Motor and sensory intact. Capillary refill 2 to 3 seconds. There is a previous surgical scar that is well healed; however, there is tenderness over what seems to be a site of erythema and tenderness in the anterolateral aspect of AV graft. Results Result Diagram: 12/22/16 0740 12/22/16 0740 LAURA SHERWOOD MD Dec 22, 2016 23:08 Results Result Diagram: 12/22/16 0740 12/22/16 0740 LAURA SHERWOOD MD Dec 22, 2016 23:08
[2016-12-23] VITALS (13 sets, daily range): BP systolic 127–177; BP diastolic 53–78; PULSE 68–84; RESP 13–20
[2016-12-23] MEDS: ONDANSETRON 4 MG INJ IV PRN ×3 (01:13→20:50)
[2016-12-23] MEDS: ACCUCHECK XX SCH (01:14)
[2016-12-23] MEDS: PANTOPRAZOLE (EC) 40 MG TAB PO SCH (05:13)
[2016-12-23] MEDS: hydrALAzine 20 MG INJ IV PRN ×2 (06:23→23:12)
[2016-12-23] MEDS ORDERED: LIDOCAINE 1% (MPF) 30 ML INJ ONE (06:49)
[2016-12-23] MEDS ORDERED: GELATIN SIZE 100 SPONGE ONE (06:49)
[2016-12-23] MEDS ORDERED: THROMBIN 5000 UNIT VIAL ONE (06:50)
[2016-12-23] MEDS ORDERED: HEPARIN 1000 UNITS/ML 10 ML INJ ONE (06:50)
--- NOTE | 2016-12-23 07:13 | HPN ---
Date/Time of Note Date/Time of Note DATE: 12/23/16 TIME: 07:13 Interval H&P Admission Note Pt. seen H&P reviewed: No system changes LAURA SHERWOOD MD Dec 23, 2016 07:13
[2016-12-23] MEDS ORDERED: ROPIVACAINE 0.5 % 30 ML VIAL ONE (07:33)
[2016-12-23] MEDS ORDERED: LIDOCAINE 1% (MDV) 20 ML INJ ONE (07:34)
[2016-12-23] MEDS: INSULIN ASPART [NOVOLOG] 3 ML PEN SC SCH ×7 (07:55→20:57)
[2016-12-23] MEDS ORDERED: CEFAZOLIN 1 GM INJ ONE (07:57)
[2016-12-23] MEDS ORDERED: hydrALAzine 20 MG INJ ONE ×3 (08:01→08:56)
[2016-12-23] MEDS ORDERED: FAMOTIDINE 20 MG INJ ONE (08:09)
[2016-12-23] MEDS ORDERED: ONDANSETRON 4 MG INJ ONE (08:09)
[2016-12-23] MEDS ORDERED: HEPARIN 1000 UNITS/ML 10 ML INJ IRR ONE (08:14)
[2016-12-23] MEDS: MULTIVIT/CA CARB/B CMPLX/FA TAB PO SCH ×2 (09:00→10:38)
[2016-12-23] MEDS: FOLIC ACID 1 MG TAB PO SCH ×2 (09:00→10:38)
[2016-12-23] MEDS ORDERED: LABETALOL HCL 20MG INJ IV PRN (09:00)
[2016-12-23] MEDS: METOPROLOL 50 MG TAB PO SCH ×3 (09:00→20:52)
[2016-12-23] MEDS: LISINOPRIL 10 MG TAB PO SCH ×3 (09:00→20:51)
[2016-12-23] MEDS: AMLODIPINE 10 MG TAB PO SCH ×2 (09:00→10:38)
[2016-12-23] MEDS: HEPARIN 5,000 UNIT/0.5 ML SYG SC SCH ×2 (09:00→20:56)
[2016-12-23] MEDS ORDERED: PROPOFOL 40 ML ONE (09:04)
[2016-12-23] MEDS ORDERED: LABETALOL HCL 20MG INJ ONE (09:12)
[2016-12-23] MEDS: HYDROmorphONE 1 MG/ML SYG IV PRN ×2 (10:40→20:51)
--- NOTE | 2016-12-23 11:15 | OPR ---
DATE OF OPERATION: 12/23/2016 PREOPERATIVE DIAGNOSES: 1. End-stage renal disease. 2. Thrombosed left upper extremity arteriovenous graft. 3. Infected arteriovenous graft. POSTOPERATIVE DIAGNOSES: 1. End-stage renal disease. 2. Thrombosed left upper extremity arteriovenous graft. 3. Infected arteriovenous graft. PROCEDURE PERFORMED: 1. Excision and ligation of infected graft. 2. Debridement of skin, subcutaneous tissue and muscle of the left upper extremity. 3. Placement of silver foam KCI wound VAC. SURGEON: Kael Dailey MD ANESTHESIA: Regional block with local. ESTIMATED BLOOD LOSS: Minimal. COMPLICATIONS: None. HEPARIN: None. SPECIMEN: 1. Culture swab sent from the arterial aspect of the graft. 2. Culture swab sent from the venous aspect of the graft. 3. Arterial graft sent for culture. 4. Venous graft sent for culture. INDICATIONS: This is a 56-year-old female who presented with a history of end-stage renal disease a nd current functioning right upper extremity AV fistula. The patient had developed left upper extre mity cellulitis, fluctuance over the area where she had a previous bovine carotid artery AV graft th at was a brach-axillary. She now comes in with suspicion of possible infected graft. Further, the graft was identified to be thrombosed. At this point, risks, benefits and alternatives were discuss ed with the patient regarding bleeding, thrombosis, embolization, myocardial infarction, , stro ke, device malfunction, infection, nerve injury, limb loss, revascularization. The patient understo od and has agreed to proceed with the procedure. FINDINGS: During our arterial and venous excision of the graft, the graft seemed to be well incorp orated, low suspicion to be infected in those segments. In the mid aspect of the graft, the graft w as not well incorporated and thrombus within was liquified, which was suggestion of purulence and in fection. DESCRIPTION OF PROCEDURE: The patient was brought into the operating room and positioned in the sup ine position. Appropriate bony prominences were padded. Bilateral upper extremities were placed in 80 degrees. Antibiotics were given preoperatively as well. At this point, the anesthesia team nadeen t ahead and placed a left upper extremity regional block with local sedation. Timeout was performed , appropriate sites were marked and confirmed. The left upper extremity was then prepped and draped in the usual standard sterile fashion. The left lower extremity was also prepped and draped in the usual standard sterile fashion. A longitudinal incision was made over the previous incision on the medial aspect of the upper arm pr oximal to the antecubital fossa. Went ahead and dissected through the skin and subcutaneous tissue exposing the arterial aspect of the AV graft. This is all well incorporated and a 2 cm segment was dissected free. At this point, of the graft already had been thrombosed. So we went ahead a nd ligated the distal aspect of the graft, which was leading to where the infected area was Once th is was established, we went ahead and ligated the graft and oversewed the graft with a 3-0 Prolene s uture. On the arterial side, we went ahead and allowed bleeding to remove any remaining thrombus wi thin the proximal aspect of the graft. There was some remnant of the graft which remained to the ar terial anastomosis. As it did not look infected, therefore, we used that to be our patch to close t hat segment. Using a 5-0 Prolene suture, we went ahead and ligated the arterial anastomosis. Once this was done, we went ahead and closed the subcutaneous tissue with 3-0 Vicryl suture. Skin staple s were applied and a sterile dressing was applied. Our attention was then turned to the venous aspect of the graft. Using 1% lidocaine, the segment wa s anesthetized. We dissected through the skin and subcutaneous tissue. We were able to expose the venous aspect of the graft, which was also well incorporated to the axillary vein. At this point, t he graft in its distal segment was freed for about 3 cm and clamps were placed and the graft was lig ated. The graft was removed from its entirety from the axillary vein and the axillary vein was repa ired. At this point, since there was some liquified thrombus that drained from the graft, we went a head and left the wound open and our attention was then turned to the anterolateral aspect of the mi d upper arm. An incision was made and the graft was exposed after we dissected through the skin and subcutaneous tissue. The graft was then excised and the wound was checked for hemostasis which was adequate. At this point, using a silver form KCI wound VAC system, we applied the silver sponge in the anterolateral incision site and the venous aspect of our incision near the axillary region. We went ahead and performed a bridge connection between the 2 wounds and set the wound VAC settings at 150 mmHg, high intensity and continuous. At this point, the patient was taken to the postanesthesi a care unit in stable condition. All instruments, sponges, needle counts were correct x2. PLAN: We will have the patient have her wound VAC changed Wednesday, Wednesday, Wednesday and we will sharon n to arrange home health to perform this for the patient. We will have the patient will follow up w ith our office in about 2 weeks. Dictated By: KAEL HOLDEN/KYLIE Conf#: [id number] DID#: [id number]
[2016-12-23] MEDS: METOCLOPRAMIDE 10 MG INJ IV PRN (16:48)
[2016-12-23] MEDS: CEFTRIAXONE 1 GM/NS 50 ML IVPB SCH (16:48)
--- NOTE | 2016-12-23 19:38 | PN ---
Date/Time of Note Date/Time of Note DATE: 12/23/16 TIME: 19:36 Assessment/Plan VTE Prophylaxis VTE Prophylaxis Intervention: other Lines/Catheters IV Catheter Type (from [facility]rs): Saline Lock Urinary Cath still in place: No Assessment/Plan Chief Complaint/Hosp Course IMPRESSION: 1. Left arm pain, rule out phlebitis. infected arteriovenous fistula.S/P I AND D 2. Hyperkalemia.BETTER 3. Hypertension. 4. Diabetes mellitus. 5. Anemia. 6. End-stage renal disease. 7. Multiple AVF revisions thrombectomy. 8. Electrolyte imbalance. PLAN HD PER DR SANCHEZ ANTIBIOTIC HD WOUND CARE Problems: Subjective 24 Hr Interval Summary Respiratory: no complaints Cardiovascular: no complaints Musculoskeletal: swelling (ARM PAIN+) Exam/Review of Systems Vital Signs Vitals Vital Signs Date Time Temp Pulse Resp B/P Pulse Ox O2 Delivery O2 Flow Rate FiO2 12/23/16 15:47 98.0 78 18 150/67 98 12/23/16 10:15 Nasal Cannula 2.0 Intake and Output 12/22/16 12/22/16 12/23/16 15:00 23:00 07:00 Intake Total 600 ml 100 ml Output Total 500 ml Balance 100 ml 100 ml Exam Respiratory: clear to auscultation Cardiovascular: regular rate and rhythm Gastrointestinal: soft Extremities: edema (+ DRESSING+ LEFT ARM) Results Result Diagram: 12/22/16 0740 12/22/16 0740 Results 24 hrs Laboratory Tests Test 12/22/16 20:31 12/23/16 06:13 12/23/16 09:38 12/23/16 11:38 Bedside Glucose 190 261 H 244 H 239 H Test 12/23/16 16:54 Bedside Glucose 103 Medications Medications Current Medications Amlodipine Besylate (Norvasc) 10 mg DAILY PO Last administered on 12/23/16 10: 38; Admin Dose 10 MG; Start 12/21/16 at 09:00 Folic Acid (Folic Acid) 1 mg DAILY PO Last administered on 12/23/16 10:38; Admin Dose 1 MG; Start 12/21/16 at 09:00 Hydralazine HCl (Apresoline) 100 mg TID PO Last administered on 12/23/16 12:42 ; Admin Dose 100 MG; Start 12/20/16 at 21:00 Lisinopril (Zestril) 10 mg BID PO Last administered on 12/23/16 10:38; Admin Dose 10 MG; Start 12/20/16 at 21:00 Metoprolol Tartrate (Lopressor) 50 mg BID PO Last administered on 12/23/16 10: 39; Admin Dose 50 MG; Start 12/20/16 at 21:00 Multivit/Ca Carb/ B Cmplx/FA/Prenat (Tory-Deven) 1 tab DAILY PO Last administered on 12/23/16 10:38; Admin Dose 1 TAB; Start 12/21/16 at 09:00 Acetaminophen (Tylenol Tab) 650 mg Q6H PRN PO PAIN LEVEL 1-3 OR FEVER Last administered on 12/21/16 21:37; Admin Dose 650 MG; Start 12/20/16 at 16:30 Acetaminophen (Tylenol Supp) 650 mg Q6H PRN [place] PAIN LEVEL 1-3 OR FEVER; Start 12/20/16 at 16:30 Hydromorphone HCl (Dilaudid) 0.5 mg Q4H PRN IV SEVERE PAIN LEVEL 7-10 Last administered on 12/23/16 10:40; Admin Dose 0.5 MG; Start 12/20/16 at 16:30 Docusate Sodium (Colace) 100 mg Q12H PRN PO CONSTIPATION; Start 12/20/16 at 16: 30 Bisacodyl (Dulcolax) 5 mg DAILY PRN PO CONSTIPATION; Start 12/20/16 at 16:30 Zolpidem Tartrate (Ambien) 5 mg QHS PRN PO SLEEP Last administered on 22:27; Admin Dose 5 MG; Start 12/20/16 at 16:30 Pantoprazole (Protonix Tab) 40 mg DAILY@06 PO Last administered on 12/21/16 05 :40; Admin Dose 40 MG; Start 12/21/16 at 06:00 Miscellaneous Information 1 ea NOTE XX ; Start 12/20/16 at 17:00 Glucose (Glutose) 15 gm Q15M PRN PO DECREASED GLUCOSE; Start 12/20/16 at 17:00 Glucose (Glutose) 22.5 gm Q15M PRN PO DECREASED GLUCOSE; Start 12/20/16 at 17: 00 Dextrose (D50w Syringe) 25 ml Q15M PRN IV DECREASED GLUCOSE; Start 12/20/16 at 17:00 Dextrose (D50w Syringe) 50 ml Q15M PRN IV DECREASED GLUCOSE; Start 12/20/16 at 17:00 Glucagon (Glucagen) 1 mg Q15M PRN IM DECREASED GLUCOSE; Start 12/20/16 at 17:00 Glucose 15 gm 15 gm Q15M PRN BUCCAL DECREASED GLUCOSE; Start 12/20/16 at 17:00 Ceftriaxone Sodium (Rocephin) 50 ml @ 100 mls/hr Q24H IVPB Last administered on 12/23/16 16:48; Admin Dose 100 MLS/HR; Start 12/20/16 at 17:00 Heparin Sodium (Porcine) (Heparin (5000 Units/0.5 ml)) 5,000 unit BID SC Last administered on 12/22/16 21:06; Admin Dose 5,000 UNIT; Start 12/20/16 at 21:00 Metoclopramide HCl (Reglan) 10 mg Q8 PRN IV NAUSEA AND/OR VOMITING Last administered on 12/23/16 16:48; Admin Dose 10 MG; Start 12/20/16 at 19:30 Ondansetron HCl (Zofran Inj) 4 mg Q4 PRN IV NAUSEA AND/OR VOMITING Last administered on 12/23/16 12:46; Admin Dose 4 MG; Start 12/20/16 at 21:00 Insulin Glargine (Lantus) 10 unit DAILY@20 SC Last administered on 12/21/16 21 :36; Admin Dose 10 UNIT; Start 12/21/16 at 20:00 Diagnostic Test (Pha) (Accucheck) 1 ea 02 XX ; Start 12/22/16 at 02:00 Hydralazine HCl (Apresoline) 10 mg Q6H PRN IV ELEVATED BLOOD PRESSURE Last administered on 12/23/16 06:23; Admin Dose 10 MG; Start 12/22/16 at 19:00 DORINA BECKER MD Dec 23, 2016 19:38
[2016-12-23] MEDS: INSULIN GLARGINE [LANtus] 3 ML PEN SC SCH (20:56)
--- NOTE | 2016-12-23 22:24 | PN ---
Date/Time of Note Date/Time of Note DATE: 12/23/16 TIME: 22:22 Assessment/Plan Lines/Catheters IV Catheter Type (from [facility]): Saline Lock [place] in Place (from [facility]): No Assessment/Plan Chief Complaint/Hosp Course -End-stage renal disease: It seems the patient may have developed an infection of a left upper extremity arteriovenous graft has been nonfunctional and has been thrombosed. -S/P Excision and ligation of Infected graft -Arrange Home Health for the patient and vac changes MWF -Patient to followup with lea January 04 at [facility] -Optimize vascular status (BP meds, diet, nutrition, exercise, sugar control, antiplatelets). -Continue with antibiotics per infectious disease recommendations. -Thank you for allowing us to partake in the care of your patient. Please call with any questions. -Discussed findings, plan and management with the patient and her son at the bedside and they understand, with a certified motorcoach driver. Problems: Subjective 24 Hr Interval Summary Constitutional: no complaints Exam/Review of Systems Vital Signs Vitals Vital Signs Date Time Temp Pulse Resp B/P Pulse Ox O2 Delivery O2 Flow Rate FiO2 12/23/16 20:00 99.4 81 20 174/58 99 12/23/16 10:15 Nasal Cannula 2.0 Intake and Output 12/22/16 12/22/16 12/23/16 15:00 23:00 07:00 Intake Total 600 ml 100 ml Output Total 500 ml Balance 100 ml 100 ml Exam Free Text/Dictation GENERAL: Alert and oriented x3 PULMONARY: Clear to auscultation bilaterally CARDIOVASCULAR: S1, S2 present. ABDOMEN: Soft, nontender, nondistended. Bowel sounds positive. EXTREMITIES: Left upper extremity: Palpable brachial pulse. Motor and sensory intact. Capillary refill 2 to 3 seconds. There is a previous surgical scar that is well healed; Incision Clean and dry dressing, wound vac intact Results Result Diagram: 12/22/16 0740 12/22/16 0740 LAURA SHERWOOD MD Dec 23, 2016 22:24
[2016-12-24] VITALS (17 sets, daily range): BP systolic 150–212; BP diastolic 70–109; PULSE 68–83; RESP 18–19
[2016-12-24] MEDS: ONDANSETRON 4 MG INJ IV PRN ×2 (00:43→17:27)
[2016-12-24] MEDS: METOCLOPRAMIDE 10 MG INJ IV PRN (00:59)
[2016-12-24] MEDS: ACCUCHECK XX SCH (01:49)
[2016-12-24] MEDS: hydrALAzine 20 MG INJ IV PRN ×3 (05:19→17:31)
[2016-12-24] MEDS: PANTOPRAZOLE (EC) 40 MG TAB PO SCH (05:35)
[2016-12-24 06:35] LABS: POTASSIUM 5.1 mmol/L (3.5-5.1)
[2016-12-24 06:38] LABS: CREATININE 8.79 mg/dl (0.44-1.00)
[2016-12-24 06:39] LABS: CALCIUM 8.4 mg/dl (8.4-10.2)
[2016-12-24 08:04] LABS: BASOPHILS % 0.6 % (0.0-2.0); EOSINOPHILS # 0.7 10^3/ul (0.0-0.5); EOSINOPHILS % 9.3 % (0.0-7.0); HEMATOCRIT 25.2 % (37.0-47.0); HEMOGLOBIN 8.4 g/dl (12.0-16.0); LYMPHOCYTES # 1.8 10^3/ul (0.8-2.9); LYMPHOCYTES % 25.3 % (15.0-51.0); MEAN CORPUSCULAR HEMOGLOBIN 33.7 pg (29.0-33.0); MEAN CORPUSCULAR HGB CONC 33.3 g/dl (32.0-37.0); MEAN CORPUSCULAR VOLUME 101.2 fl (82.0-101.0); MEAN PLATELET VOLUME 11.6 fl (7.4-10.4); MONOCYTE # 0.7 10^3/ul (0.3-0.9); NEUTROPHIL # 3.8 10^3/ul (1.6-7.5); NEUTROPHILS % 54.4 % (39.0-77.0); PLATELET COUNT 175 10^3/UL (140-415); RED BLOOD COUNT 2.49 10^6/ul (4.20-5.40); RED CELL DISTRIBUTION WIDTH 13.2 % (11.5-14.5)
[2016-12-24] MEDS: MULTIVIT/CA CARB/B CMPLX/FA TAB PO SCH (08:13)
[2016-12-24] MEDS: FOLIC ACID 1 MG TAB PO SCH (08:14)
[2016-12-24] MEDS: METOPROLOL 50 MG TAB PO SCH ×3 (08:22→20:44)
[2016-12-24] MEDS: AMLODIPINE 10 MG TAB PO SCH ×2 (08:23→13:37)
[2016-12-24] MEDS: LISINOPRIL 10 MG TAB PO SCH ×3 (08:23→20:43)
[2016-12-24] MEDS: HEPARIN 5,000 UNIT/0.5 ML SYG SC SCH ×2 (08:40→20:45)
[2016-12-24] MEDS: INSULIN ASPART [NOVOLOG] 3 ML PEN SC SCH ×7 (09:11→20:52)
[2016-12-24] MEDS: HYDROmorphONE 1 MG/ML SYG IV PRN (16:36)
[2016-12-24] MEDS: CEFTRIAXONE 1 GM/NS 50 ML IVPB SCH (16:36)
--- NOTE | 2016-12-24 20:02 | PN ---
Date/Time of Note Date/Time of Note DATE: 12/24/16 TIME: 20:02 Assessment/Plan VTE Prophylaxis VTE Prophylaxis Intervention: other Lines/Catheters [facility] Saline Lock Urinary Cath still in place: No Assessment/Plan Chief Complaint/Hosp Course IMPRESSION: 1. Left arm pain, rule out phlebitis. infected arteriovenous fistula.S/P I AND D 2. Hyperkalemia.BETTER 3. Hypertension. 4. Diabetes mellitus. 5. Anemia. 6. End-stage renal disease. 7. Multiple AVF revisions thrombectomy. 8. Electrolyte imbalance. PLAN HD PER DR SANCHEZ ANTIBIOTIC HD WOUND CARE Problems: Subjective 24 Hr Interval Summary Respiratory: no complaints Cardiovascular: no complaints Exam/Review of Systems Vital Signs Vitals Vital Signs Date Time Temp Pulse Resp B/P Pulse Ox O2 Delivery O2 Flow Rate FiO2 12/24/16 18:00 78 185/72 12/24/16 13:00 18 12/24/16 07:52 98.3 97 12/24/16 01:52 Room Air 12/23/16 10:15 2.0 Intake and Output 12/23/16 12/23/16 12/24/16 15:00 23:00 07:00 Intake Total 200 ml 450 ml Output Total 40 ml Balance 160 ml 450 ml Exam Neck: supple Respiratory: clear to auscultation Cardiovascular: regular rate and rhythm Gastrointestinal: soft Extremities: other (left arm vac+) Results Result Diagram: 12/24/16 0555 12/24/16 0555 Results 24 hrs Laboratory Tests Test 12/23/16 20:40 12/24/16 01:46 12/24/16 05:55 12/24/16 07:53 Bedside Glucose 292 H 271 H 215 Anion Gap 23 H Basophils # 0.0 Basophils % 0.6 Blood Urea Nitrogen 42 H Calcium Level 8.4 Carbon Dioxide Level 25 Chloride Level 93 L Creatinine 8.79 H Eosinophils # 0.7 H Eosinophils % 9.3 H Glucose Level 203 # Hematocrit 25.2 L Hemoglobin 8.4 L Lymphocytes # 1.8 Lymphocytes % 25.3 Mean Corpuscular Hemoglobin 33.7 H Mean Corpuscular Hemoglobin Concent 33.3 Mean Corpuscular Volume 101.2 H Mean Platelet Volume 11.6 H Monocytes # 0.7 Monocytes % 10.0 Neutrophils # 3.8 Neutrophils % 54.4 Nucleated Red Blood Cells # 0.0 Nucleated Red Blood Cells % 0.0 Platelet Count 175 Potassium Level 5.1 Red Blood Count 2.49 L Red Cell Distribution Width 13.2 Sodium Level 136 White Blood Count 7.0 # Test 12/24/16 12:32 12/24/16 17:35 Bedside Glucose 196 183 Medications Medications Current Medications Amlodipine Besylate (Norvasc) 10 mg DAILY PO Last administered on 12/24/16 13: 37; Admin Dose 10 MG; Start 12/21/16 at 09:00 Folic Acid (Folic Acid) 1 mg DAILY PO Last administered on 12/24/16 08:14; Admin Dose 1 MG; Start 12/21/16 at 09:00 Hydralazine HCl (Apresoline) 100 mg TID PO Last administered on 12/24/16 13:36 ; Admin Dose 100 MG; Start 12/20/16 at 21:00 Lisinopril (Zestril) 10 mg BID PO Last administered on 12/24/16 13:37; Admin Dose 10 MG; Start 12/20/16 at 21:00 Metoprolol Tartrate (Lopressor) 50 mg BID PO Last administered on 12/24/16 13: 37; Admin Dose 50 MG; Start 12/20/16 at 21:00 Multivit/Ca Carb/ B Cmplx/FA/Prenat (Tory-Deven) 1 tab DAILY PO Last administered on 12/24/16 08:13; Admin Dose 1 TAB; Start 12/21/16 at 09:00 Acetaminophen (Tylenol Tab) 650 mg Q6H PRN PO PAIN LEVEL 1-3 OR FEVER Last administered on 12/21/16 21:37; Admin Dose 650 MG; Start 12/20/16 at 16:30 Acetaminophen (Tylenol Supp) 650 mg Q6H PRN [place] PAIN LEVEL 1-3 OR FEVER; Start 12/20/16 at 16:30 Hydromorphone HCl (Dilaudid) 0.5 mg Q4H PRN IV SEVERE PAIN LEVEL 7-10 Last administered on 12/24/16 16:36; Admin Dose 0.5 MG; Start 12/20/16 at 16:30 Docusate Sodium (Colace) 100 mg Q12H PRN PO CONSTIPATION; Start 12/20/16 at 16: 30 Bisacodyl (Dulcolax) 5 mg DAILY PRN PO CONSTIPATION; Start 12/20/16 at 16:30 Zolpidem Tartrate (Ambien) 5 mg QHS PRN PO SLEEP Last administered on 22:27; Admin Dose 5 MG; Start 12/20/16 at 16:30 Pantoprazole (Protonix Tab) 40 mg DAILY@06 PO Last administered on 12/24/16 05 :35; Admin Dose 40 MG; Start 12/21/16 at 06:00 Miscellaneous Information 1 ea NOTE XX ; Start 12/20/16 at 17:00 Glucose (Glutose) 15 gm Q15M PRN PO DECREASED GLUCOSE; Start 12/20/16 at 17:00 Glucose (Glutose) 22.5 gm Q15M PRN PO DECREASED GLUCOSE; Start 12/20/16 at 17: 00 Dextrose (D50w Syringe) 25 ml Q15M PRN IV DECREASED GLUCOSE; Start 12/20/16 at 17:00 Dextrose (D50w Syringe) 50 ml Q15M PRN IV DECREASED GLUCOSE; Start 12/20/16 at 17:00 Glucagon (Glucagen) 1 mg Q15M PRN IM DECREASED GLUCOSE; Start 12/20/16 at 17:00 Glucose 15 gm 15 gm Q15M PRN BUCCAL DECREASED GLUCOSE; Start 12/20/16 at 17:00 Ceftriaxone Sodium (Rocephin) 50 ml @ 100 mls/hr Q24H IVPB Last administered on 12/24/16 16:36; Admin Dose 100 MLS/HR; Start 12/20/16 at 17:00 Heparin Sodium (Porcine) (Heparin (5000 Units/0.5 ml)) 5,000 unit BID SC Last administered on 12/24/16 08:40; Admin Dose 5,000 UNIT; Start 12/20/16 at 21:00 Metoclopramide HCl (Reglan) 10 mg Q8 PRN IV NAUSEA AND/OR VOMITING Last administered on 12/24/16 00:59; Admin Dose 10 MG; Start 12/20/16 at 19:30 Ondansetron HCl (Zofran Inj) 4 mg Q4 PRN IV NAUSEA AND/OR VOMITING Last administered on 12/24/16 17:27; Admin Dose 4 MG; Start 12/20/16 at 21:00 Insulin Glargine (Lantus) 10 unit DAILY@20 SC Last administered on 12/23/16 20 :56; Admin Dose 10 UNIT; Start 12/21/16 at 20:00 Diagnostic Test (Pha) (Accucheck) 1 ea 02 XX Last administered on 12/24/16 01: 49; Admin Dose 1 EA; Start 12/22/16 at 02:00 Hydralazine HCl (Apresoline) 10 mg Q6H PRN IV ELEVATED BLOOD PRESSURE Last administered on 12/24/16 17:31; Admin Dose 10 MG; Start 12/22/16 at 19:00 DORINA BECKER MD Dec 24, 2016 20:02
--- NOTE | 2016-12-24 20:06 | PN ---
Date/Time of Note Date/Time of Note DATE: 12/24/16 TIME: 20:05 Assessment/Plan VTE Prophylaxis VTE Prophylaxis Intervention: other Lines/Catheters [facility] Type [facility] Saline Lock Urinary Cath still in place: No Assessment/Plan Chief Complaint/Hosp Course IMPRESSION: 1. Left arm pain, rule out phlebitis. infected arteriovenous fistula.S/P I AND D 2. Hyperkalemia.BETTER 3. Hypertension. 4. Diabetes mellitus. 5. Anemia. 6. End-stage renal disease. 7. Multiple AVF revisions thrombectomy. 8. Electrolyte imbalance. PLAN HD PER DR SANCHEZ ANTIBIOTIC HD WOUND residential soon Problems: Subjective 24 Hr Interval Summary Respiratory: no complaints Cardiovascular: no complaints Exam/Review of Systems Vital Signs Vitals Vital Signs Date Time Temp Pulse Resp B/P Pulse Ox O2 Delivery O2 Flow Rate FiO2 12/24/16 18:00 78 185/72 12/24/16 13:00 18 12/24/16 07:52 98.3 97 12/24/16 01:52 Room Air 12/23/16 10:15 2.0 Intake and Output 12/23/16 12/23/16 12/24/16 15:00 23:00 07:00 Intake Total 200 ml 450 ml Output Total 40 ml Balance 160 ml 450 ml Exam Respiratory: clear to auscultation Cardiovascular: regular rate and rhythm Gastrointestinal: soft Results Result Diagram: 12/24/16 0555 12/24/16 0555 Results 24 hrs Laboratory Tests Test 12/23/16 20:40 12/24/16 01:46 12/24/16 05:55 12/24/16 07:53 Bedside Glucose 292 H 271 H 215 Anion Gap 23 H Basophils # 0.0 Basophils % 0.6 Blood Urea Nitrogen 42 H Calcium Level 8.4 Carbon Dioxide Level 25 Chloride Level 93 L Creatinine 8.79 H Eosinophils # 0.7 H Eosinophils % 9.3 H Glucose Level 203 # Hematocrit 25.2 L Hemoglobin 8.4 L Lymphocytes # 1.8 Lymphocytes % 25.3 Mean Corpuscular Hemoglobin 33.7 H Mean Corpuscular Hemoglobin Concent 33.3 Mean Corpuscular Volume 101.2 H Mean Platelet Volume 11.6 H Monocytes # 0.7 Monocytes % 10.0 Neutrophils # 3.8 Neutrophils % 54.4 Nucleated Red Blood Cells # 0.0 Nucleated Red Blood Cells % 0.0 Platelet Count 175 Potassium Level 5.1 Red Blood Count 2.49 L Red Cell Distribution Width 13.2 Sodium Level 136 White Blood Count 7.0 # Test 12/24/16 12:32 12/24/16 17:35 Bedside Glucose 196 183 Medications Medications Current Medications Amlodipine Besylate (Norvasc) 10 mg DAILY PO Last administered on 12/24/16 13: 37; Admin Dose 10 MG; Start 12/21/16 at 09:00 Folic Acid (Folic Acid) 1 mg DAILY PO Last administered on 12/24/16 08:14; Admin Dose 1 MG; Start 12/21/16 at 09:00 Hydralazine HCl (Apresoline) 100 mg TID PO Last administered on 12/24/16 13:36 ; Admin Dose 100 MG; Start 12/20/16 at 21:00 Lisinopril (Zestril) 10 mg BID PO Last administered on 12/24/16 13:37; Admin Dose 10 MG; Start 12/20/16 at 21:00 Metoprolol Tartrate (Lopressor) 50 mg BID PO Last administered on 12/24/16 13: 37; Admin Dose 50 MG; Start 12/20/16 at 21:00 Multivit/Ca Carb/ B Cmplx/FA/Prenat (Tory-Deven) 1 tab DAILY PO Last administered on 12/24/16 08:13; Admin Dose 1 TAB; Start 12/21/16 at 09:00 Acetaminophen (Tylenol Tab) 650 mg Q6H PRN PO PAIN LEVEL 1-3 OR FEVER Last administered on 12/21/16 21:37; Admin Dose 650 MG; Start 12/20/16 at 16:30 Acetaminophen (Tylenol Supp) 650 mg Q6H PRN [place] PAIN LEVEL 1-3 OR FEVER; Start 12/20/16 at 16:30 Hydromorphone HCl (Dilaudid) 0.5 mg Q4H PRN IV SEVERE PAIN LEVEL 7-10 Last administered on 12/24/16 16:36; Admin Dose 0.5 MG; Start 12/20/16 at 16:30 Docusate Sodium (Colace) 100 mg Q12H PRN PO CONSTIPATION; Start 12/20/16 at 16: 30 Bisacodyl (Dulcolax) 5 mg DAILY PRN PO CONSTIPATION; Start 12/20/16 at 16:30 Zolpidem Tartrate (Ambien) 5 mg QHS PRN PO SLEEP Last administered on 22:27; Admin Dose 5 MG; Start 12/20/16 at 16:30 Pantoprazole (Protonix Tab) 40 mg DAILY@06 PO Last administered on 12/24/16 05 :35; Admin Dose 40 MG; Start 12/21/16 at 06:00 Miscellaneous Information 1 ea NOTE XX ; Start 12/20/16 at 17:00 Glucose (Glutose) 15 gm Q15M PRN PO DECREASED GLUCOSE; Start 12/20/16 at 17:00 Glucose (Glutose) 22.5 gm Q15M PRN PO DECREASED GLUCOSE; Start 12/20/16 at 17: 00 Dextrose (D50w Syringe) 25 ml Q15M PRN IV DECREASED GLUCOSE; Start 12/20/16 at 17:00 Dextrose (D50w Syringe) 50 ml Q15M PRN IV DECREASED GLUCOSE; Start 12/20/16 at 17:00 Glucagon (Glucagen) 1 mg Q15M PRN IM DECREASED GLUCOSE; Start 12/20/16 at 17:00 Glucose 15 gm 15 gm Q15M PRN BUCCAL DECREASED GLUCOSE; Start 12/20/16 at 17:00 Ceftriaxone Sodium (Rocephin) 50 ml @ 100 mls/hr Q24H IVPB Last administered on 12/24/16 16:36; Admin Dose 100 MLS/HR; Start 12/20/16 at 17:00 Heparin Sodium (Porcine) (Heparin (5000 Units/0.5 ml)) 5,000 unit BID SC Last administered on 12/24/16 08:40; Admin Dose 5,000 UNIT; Start 12/20/16 at 21:00 Metoclopramide HCl (Reglan) 10 mg Q8 PRN IV NAUSEA AND/OR VOMITING Last administered on 12/24/16 00:59; Admin Dose 10 MG; Start 12/20/16 at 19:30 Ondansetron HCl (Zofran Inj) 4 mg Q4 PRN IV NAUSEA AND/OR VOMITING Last administered on 12/24/16 17:27; Admin Dose 4 MG; Start 12/20/16 at 21:00 Insulin Glargine (Lantus) 10 unit DAILY@20 SC Last administered on 12/23/16 20 :56; Admin Dose 10 UNIT; Start 12/21/16 at 20:00 Diagnostic Test (Pha) (Accucheck) 1 ea 02 XX Last administered on 12/24/16 01: 49; Admin Dose 1 EA; Start 12/22/16 at 02:00 Hydralazine HCl (Apresoline) 10 mg Q6H PRN IV ELEVATED BLOOD PRESSURE Last administered on 12/24/16 17:31; Admin Dose 10 MG; Start 12/22/16 at 19:00 DORINA BECKER MD Dec 24, 2016 20:06
[2016-12-24] MEDS: INSULIN GLARGINE [LANtus] 3 ML PEN SC SCH (20:51)
[2016-12-25] MEDS: ACCUCHECK XX SCH (02:25)
[2016-12-25] MEDS: PANTOPRAZOLE (EC) 40 MG TAB PO SCH (05:45)
[2016-12-25 07:55] VITALS: BP 158/69; RESP 18
[2016-12-25] MEDS: INSULIN ASPART [NOVOLOG] 3 ML PEN SC SCH ×7 (08:15→20:50)
[2016-12-25] MEDS: MULTIVIT/CA CARB/B CMPLX/FA TAB PO SCH (08:46)
[2016-12-25] MEDS: FOLIC ACID 1 MG TAB PO SCH (08:47)
[2016-12-25] MEDS: AMLODIPINE 10 MG TAB PO SCH (08:48)
[2016-12-25] MEDS: LISINOPRIL 10 MG TAB PO SCH ×2 (08:48→20:36)
[2016-12-25] MEDS: METOPROLOL 50 MG TAB PO SCH ×2 (08:48→20:37)
[2016-12-25] MEDS: HEPARIN 5,000 UNIT/0.5 ML SYG SC SCH ×2 (08:52→20:51)
[2016-12-25] MEDS: CEFTRIAXONE 1 GM/NS 50 ML IVPB SCH (17:38)
[2016-12-25 19:20] VITALS: BP 160/70; RESP 18
[2016-12-25] MEDS: INSULIN GLARGINE [LANtus] 3 ML PEN SC SCH (20:45)
--- NOTE | 2016-12-25 22:04 | PN ---
Date/Time of Note Date/Time of Note DATE: 12/25/16 TIME: 22:04 Assessment/Plan VTE Prophylaxis VTE Prophylaxis Intervention: other Lines/Catheters [facility] Type [facility] Saline Lock Urinary Cath still in place: No Assessment/Plan Chief Complaint/Hosp Course IMPRESSION: 1. Left arm pain, rule out phlebitis. infected arteriovenous fistula.S/P I AND D 2. Hyperkalemia.BETTER 3. Hypertension. 4. Diabetes mellitus. 5. Anemia. 6. End-stage renal disease. 7. Multiple AVF revisions thrombectomy. 8. Electrolyte imbalance. PLAN HD PER DR SANCHEZ ANTIBIOTIC HD WOUND long-term soon Problems: Subjective 24 Hr Interval Summary Gastrointestinal: no complaints Genitourinary: no complaints Exam/Review of Systems Vital Signs Vitals Vital Signs Date Time Temp Pulse Resp B/P Pulse Ox O2 Delivery O2 Flow Rate FiO2 12/25/16 19:20 98.8 60 18 160/70 92 12/24/16 01:52 Room Air 12/23/16 10:15 2.0 Intake and Output 12/24/16 12/24/16 12/25/16 15:00 23:00 07:00 Intake Total 300 ml 270 ml 120 ml Output Total 2800 ml Balance -2500 ml 270 ml 120 ml Exam Respiratory: clear to auscultation Cardiovascular: regular rate and rhythm Gastrointestinal: soft Musculoskeletal: nl extremities to inspection Results Result Diagram: 12/24/16 0555 12/24/16 0555 Results 24 hrs Laboratory Tests Test 12/25/16 02:18 12/25/16 08:11 12/25/16 11:59 12/25/16 17:36 Bedside Glucose 163 77 143 239 H Test 12/25/16 20:38 Bedside Glucose 298 H Medications Medications Current Medications Amlodipine Besylate (Norvasc) 10 mg DAILY PO Last administered on 12/25/16 08: 48; Admin Dose 10 MG; Start 12/21/16 at 09:00 Folic Acid (Folic Acid) 1 mg DAILY PO Last administered on 12/25/16 08:47; Admin Dose 1 MG; Start 12/21/16 at 09:00 Hydralazine HCl (Apresoline) 100 mg TID PO Last administered on 12/25/16 20:36 ; Admin Dose 100 MG; Start 12/20/16 at 21:00 Lisinopril (Zestril) 10 mg BID PO Last administered on 12/25/16 20:36; Admin Dose 10 MG; Start 12/20/16 at 21:00 Metoprolol Tartrate (Lopressor) 50 mg BID PO Last administered on 12/25/16 20: 37; Admin Dose 50 MG; Start 12/20/16 at 21:00 Multivit/Ca Carb/ B Cmplx/FA/Prenat (Tory-Deven) 1 tab DAILY PO Last administered on 12/25/16 08:46; Admin Dose 1 TAB; Start 12/21/16 at 09:00 Acetaminophen (Tylenol Tab) 650 mg Q6H PRN PO PAIN LEVEL 1-3 OR FEVER Last administered on 12/21/16 21:37; Admin Dose 650 MG; Start 12/20/16 at 16:30 Acetaminophen (Tylenol Supp) 650 mg Q6H PRN [place] PAIN LEVEL 1-3 OR FEVER; Start 12/20/16 at 16:30 Hydromorphone HCl (Dilaudid) 0.5 mg Q4H PRN IV SEVERE PAIN LEVEL 7-10 Last administered on 12/24/16 16:36; Admin Dose 0.5 MG; Start 12/20/16 at 16:30 Docusate Sodium (Colace) 100 mg Q12H PRN PO CONSTIPATION Last administered on 10:24; Admin Dose 100 MG; Start 12/20/16 at 16:30 Bisacodyl (Dulcolax) 5 mg DAILY PRN PO CONSTIPATION; Start 12/20/16 at 16:30 Zolpidem Tartrate (Ambien) 5 mg QHS PRN PO SLEEP Last administered on 22:27; Admin Dose 5 MG; Start 12/20/16 at 16:30 Pantoprazole (Protonix Tab) 40 mg DAILY@06 PO Last administered on 12/25/16 05 :45; Admin Dose 40 MG; Start 12/21/16 at 06:00 Miscellaneous Information 1 ea NOTE XX ; Start 12/20/16 at 17:00 Glucose (Glutose) 15 gm Q15M PRN PO DECREASED GLUCOSE; Start 12/20/16 at 17:00 Glucose (Glutose) 22.5 gm Q15M PRN PO DECREASED GLUCOSE; Start 12/20/16 at 17: 00 Dextrose (D50w Syringe) 25 ml Q15M PRN IV DECREASED GLUCOSE; Start 12/20/16 at 17:00 Dextrose (D50w Syringe) 50 ml Q15M PRN IV DECREASED GLUCOSE; Start 12/20/16 at 17:00 Glucagon (Glucagen) 1 mg Q15M PRN IM DECREASED GLUCOSE; Start 12/20/16 at 17:00 Glucose 15 gm 15 gm Q15M PRN BUCCAL DECREASED GLUCOSE; Start 12/20/16 at 17:00 Ceftriaxone Sodium (Rocephin) 50 ml @ 100 mls/hr Q24H IVPB Last administered on 12/25/16 17:38; Admin Dose 100 MLS/HR; Start 12/20/16 at 17:00 Heparin Sodium (Porcine) (Heparin (5000 Units/0.5 ml)) 5,000 unit BID SC Last administered on 12/25/16 20:51; Admin Dose 5,000 UNIT; Start 12/20/16 at 21:00 Metoclopramide HCl (Reglan) 10 mg Q8 PRN IV NAUSEA AND/OR VOMITING Last administered on 12/24/16 00:59; Admin Dose 10 MG; Start 12/20/16 at 19:30 Ondansetron HCl (Zofran Inj) 4 mg Q4 PRN IV NAUSEA AND/OR VOMITING Last administered on 12/24/16 17:27; Admin Dose 4 MG; Start 12/20/16 at 21:00 Insulin Glargine (Lantus) 10 unit DAILY@20 SC Last administered on 12/25/16 20 :45; Admin Dose 10 UNIT; Start 12/21/16 at 20:00 Diagnostic Test (Pha) (Accucheck) 1 ea 02 XX Last administered on 12/25/16 02: 25; Admin Dose 1 EA; Start 12/22/16 at 02:00 Hydralazine HCl (Apresoline) 10 mg Q6H PRN IV ELEVATED BLOOD PRESSURE Last administered on 12/24/16 17:31; Admin Dose 10 MG; Start 12/22/16 at 19:00 Clonidine (Catapres) 0.2 mg Q8 PO Last administered on 12/25/16 15:06; Admin Dose 0.2 MG; Start 12/24/16 at 22:00 Hydralazine HCl (Apresoline) 25 mg TID PO Last administered on 12/25/16t 20:37 ; Admin Dose 25 MG; Start 12/24/16 at 21:00 DORINA BECKER MD Dec 25, 2016 22:04
[2016-12-26] VITALS (12 sets, daily range): BP systolic 118–201; BP diastolic 63–83; PULSE 71–77; RESP 18–19
[2016-12-26] MEDS: HYDROmorphONE 1 MG/ML SYG IV PRN (01:41)
[2016-12-26] MEDS: ACCUCHECK XX SCH (03:10)
[2016-12-26] MEDS: hydrALAzine 20 MG INJ IV PRN ×2 (03:19→23:50)
[2016-12-26] MEDS: PANTOPRAZOLE (EC) 40 MG TAB PO SCH (06:04)
[2016-12-26] MEDS: ONDANSETRON 4 MG INJ IV PRN (06:12)
[2016-12-26] MEDS: FOLIC ACID 1 MG TAB PO SCH (08:58)
[2016-12-26] MEDS: MULTIVIT/CA CARB/B CMPLX/FA TAB PO SCH (08:58)
[2016-12-26] MEDS: AMLODIPINE 10 MG TAB PO SCH (09:00)
[2016-12-26] MEDS: METOPROLOL 50 MG TAB PO SCH ×2 (09:00→20:13)
[2016-12-26] MEDS: LISINOPRIL 10 MG TAB PO SCH ×2 (09:00→20:14)
[2016-12-26] MEDS: HEPARIN 5,000 UNIT/0.5 ML SYG SC SCH ×2 (09:06→20:19)
[2016-12-26] MEDS: INSULIN ASPART [NOVOLOG] 3 ML PEN SC SCH ×7 (09:06→20:19)
--- NOTE | 2016-12-26 10:23 | PDOCDIS ---
Discharge Instructions CONDITION Patient Condition: Stable HOME CARE INSTRUCTIONS: Special Diet: CARB CONTROLLED ACTIVITY: Activity Restrictions: Slowly Increase Activity FOLLOW UP/APPOINTMENTS Appointments f/u dr becker [address] sabrina diggs 10 days DORINA BECKER MD Dec 26, 2016 10:22
[2016-12-26] MEDS ORDERED: CLON0.2T12 PO (10:25)
[2016-12-26] MEDS ORDERED: DOXY100T20 PO (10:25)
[2016-12-26] MEDS ORDERED: METO5TAB11 PO (10:25)
--- NOTE | 2016-12-26 12:04 | PN ---
Date/Time of Note Date/Time of Note DATE: 12/26/16 TIME: 12:04 Assessment/Plan VTE Prophylaxis VTE Prophylaxis Intervention: other Lines/Catheters IV [facility] Type [facility]from [facility] Saline Lock Urinary Cath still in place: No Assessment/Plan Chief Complaint/Hosp Course IMPRESSION: 1. Left arm pain, . infected arteriovenous fistula.S/P I AND D 2. Hyperkalemia.BETTER 3. Hypertension. 4. Diabetes mellitus. 5. Anemia. 6. End-stage renal disease. 7. Multiple AVF revisions thrombectomy. 8. Electrolyte imbalance. PLAN HD PER DR SANCHEZ ANTIBIOTIC HD WOUND long-term soon Problems: Subjective 24 Hr Interval Summary Cardiovascular: no complaints Gastrointestinal: no complaints Genitourinary: no complaints Exam/Review of Systems Vital Signs Vitals Vital Signs Date Time Temp Pulse Resp B/P Pulse Ox O2 Delivery O2 Flow Rate FiO2 12/26/16 08:05 98.4 57 18 181/74 95 12/24/16 01:52 Room Air 12/23/16 10:15 2.0 Intake and Output 12/25/16 12/25/16 12/26/16 15:00 23:00 07:00 Intake Total 1010 ml Output Total 300 ml Balance 1010 ml -300 ml Exam Respiratory: clear to auscultation Cardiovascular: regular rate and rhythm Gastrointestinal: soft Musculoskeletal: nl extremities to inspection Extremities: normal pulses Results Result Diagram: 12/24/16 0555 12/24/16 0555 Results 24 hrs Laboratory Tests Test 12/25/16 17:36 12/25/16 20:38 12/26/16 02:19 12/26/16 03:10 Bedside Glucose 239 H 298 H 395 H 355 H Test 12/26/16 08:01 12/26/16 11:44 Bedside Glucose 219 172 Medications Medications Current Medications Folic Acid (Folic Acid) 1 mg DAILY PO Last administered on 12/26/16 08:58; Admin Dose 1 MG; Start 12/21/16 at 09:00 Lisinopril (Zestril) 10 mg BID PO Last administered on 12/25/16 20:36; Admin Dose 10 MG; Start 12/20/16 at 21:00 Metoprolol Tartrate (Lopressor) 50 mg BID PO Last administered on 12/25/16 20: 37; Admin Dose 50 MG; Start 12/20/16 at 21:00 Multivit/Ca Carb/ B Cmplx/FA/Prenat (Tory-Deven) 1 tab DAILY PO Last administered on 12/26/16 08:58; Admin Dose 1 TAB; Start 12/21/16 at 09:00 Acetaminophen (Tylenol Tab) 650 mg Q6H PRN PO PAIN LEVEL 1-3 OR FEVER Last administered on 12/21/16 21:37; Admin Dose 650 MG; Start 12/20/16 at 16:30 Acetaminophen (Tylenol Supp) 650 mg Q6H PRN [place] PAIN LEVEL 1-3 OR FEVER; Start 12/20/16 at 16:30 Hydromorphone HCl (Dilaudid) 0.5 mg Q4H PRN IV SEVERE PAIN LEVEL 7-10 Last administered on 12/26/16 01:41; Admin Dose 0.5 MG; Start 12/20/16 at 16:30 Docusate Sodium (Colace) 100 mg Q12H PRN PO CONSTIPATION Last administered on 10:24; Admin Dose 100 MG; Start 12/20/16 at 16:30 Bisacodyl (Dulcolax) 5 mg DAILY PRN PO CONSTIPATION; Start 12/20/16 at 16:30 Zolpidem Tartrate (Ambien) 5 mg QHS PRN PO SLEEP Last administered on 22:27; Admin Dose 5 MG; Start 12/20/16 at 16:30 Pantoprazole (Protonix Tab) 40 mg DAILY@06 PO Last administered on 12/26/16 06 :04; Admin Dose 40 MG; Start 12/21/16 at 06:00 Miscellaneous Information 1 ea NOTE XX ; Start 12/20/16 at 17:00 Glucose (Glutose) 15 gm Q15M PRN PO DECREASED GLUCOSE; Start 12/20/16 at 17:00 Glucose (Glutose) 22.5 gm Q15M PRN PO DECREASED GLUCOSE; Start 12/20/16 at 17: 00 Dextrose (D50w Syringe) 25 ml Q15M PRN IV DECREASED GLUCOSE; Start 12/20/16 at 17:00 Dextrose (D50w Syringe) 50 ml Q15M PRN IV DECREASED GLUCOSE; Start 12/20/16 at 17:00 Glucagon (Glucagen) 1 mg Q15M PRN IM DECREASED GLUCOSE; Start 12/20/16 at 17:00 Glucose 15 gm 15 gm Q15M PRN BUCCAL DECREASED GLUCOSE; Start 12/20/16 at 17:00 Ceftriaxone Sodium (Rocephin) 50 ml @ 100 mls/hr Q24H IVPB Last administered on 12/25/16 17:38; Admin Dose 100 MLS/HR; Start 12/20/16 at 17:00 Heparin Sodium (Porcine) (Heparin (5000 Units/0.5 ml)) 5,000 unit BID SC Last administered on 12/26/16 09:06; Admin Dose 5,000 UNIT; Start 12/20/16 at 21:00 Metoclopramide HCl (Reglan) 10 mg Q8 PRN IV NAUSEA AND/OR VOMITING Last administered on 12/24/16 00:59; Admin Dose 10 MG; Start 12/20/16 at 19:30 Ondansetron HCl (Zofran Inj) 4 mg Q4 PRN IV NAUSEA AND/OR VOMITING Last administered on 12/26/16 06:12; Admin Dose 4 MG; Start 12/20/16 at 21:00 Diagnostic Test (Pha) (Accucheck) 1 ea 02 XX Last administered on 12/25/16 02: 25; Admin Dose 1 EA; Start 12/22/16 at 02:00 Hydralazine HCl (Apresoline) 10 mg Q6H PRN IV ELEVATED BLOOD PRESSURE Last administered on 12/26/16 03:19; Admin Dose 10 MG; Start 12/22/16 at 19:00 Clonidine (Catapres) 0.2 mg Q8 PO Last administered on 12/26/16 06:05; Admin Dose 0.2 MG; Start 12/24/16 at 22:00 Hydralazine HCl (Apresoline) 75 mg TID PO ; Start 12/26/16 at 13:00 Insulin Glargine (Lantus) 16 unit DAILY@20 SC ; Start 12/26/16 at 20:00 Amlodipine Besylate (Norvasc) 5 mg BID PO ; Start 12/26/16 at 21:00 Metoclopramide HCl (Reglan) 5 mg TID PO ; Start 12/26/16 at 13:00 DORINA BECKER MD Dec 26, 2016 12:04
[2016-12-26] MEDS: METOCLOPRAMIDE 5 MG TAB PO SCH ×2 (13:21→20:13)
[2016-12-26] MEDS: CEFTRIAXONE 1 GM/NS 50 ML IVPB SCH (17:04)
[2016-12-26] MEDS ORDERED: INSULIN GLARGINE [LANtus] 3 ML PEN SC SCH (20:00)
[2016-12-26] MEDS: AMLODIPINE 5 MG TAB PO SCH (20:13)
[2016-12-27] MEDS: ACCUCHECK XX SCH (02:00)
[2016-12-27] MEDS: PANTOPRAZOLE (EC) 40 MG TAB PO SCH (05:44)
[2016-12-27 05:47] VITALS: BP 179/79; RESP 17
[2016-12-27 07:31] VITALS: BP 181/76; RESP 18
[2016-12-27] MEDS: INSULIN ASPART [NOVOLOG] 3 ML PEN SC SCH ×2 (08:15→09:19)
[2016-12-27] MEDS: METOCLOPRAMIDE 5 MG TAB PO SCH (09:10)
[2016-12-27] MEDS: LISINOPRIL 10 MG TAB PO SCH (09:10)
[2016-12-27] MEDS: FOLIC ACID 1 MG TAB PO SCH (09:10)
[2016-12-27] MEDS: MULTIVIT/CA CARB/B CMPLX/FA TAB PO SCH (09:10)
[2016-12-27] MEDS: AMLODIPINE 5 MG TAB PO SCH (09:11)
[2016-12-27] MEDS: HEPARIN 5,000 UNIT/0.5 ML SYG SC SCH (09:19)
[2016-12-27 10:24] VITALS: BP 173/83; PULSE 61
[2016-12-27] MEDS: METOPROLOL 50 MG TAB PO SCH (10:24)
--- NOTE | 2016-12-31 23:00 | QN ---
Documentation Comment [id number] DORINA BECKER MD Dec 31, 2016 23:00
== END 2016-12-27 11:15 | disposition home or self-care (01) | DRG 252 ==
LOC: E/R 10:04 → TEL 12:36 → MS2 12-24 01:12
PROVIDERS: ADMIT Internal Medicine Nephrology; ATTEND Internal Medicine Nephrology
PROC: 03PY0KZ Removal of Nonautologous Tissue Substitute from Upper Artery, Open Approach (ICD-10-PCS; 2016-12-23)
PROC: 0JDH0ZZ Extraction of Left Lower Arm Subcutaneous Tissue and Fascia, Open Approach (ICD-10-PCS; 2016-12-23)
PROC: 05PY0KZ Removal of Nonautologous Tissue Substitute from Upper Vein, Open Approach (ICD-10-PCS; principal; 2016-12-23 07:30)
DX: T82.868A Thrombosis due to vascular prosthetic devices, implants and grafts, initial encounter (principal); N18.6 End stage renal disease; T82.7XXA Infection and inflammatory reaction due to other cardiac and vascular devices, implants and grafts, initial encounter; I12.0 Hypertensive chronic kidney disease with stage 5 chronic kidney disease or end stage renal disease; E11.9 Type 2 diabetes mellitus without complications; I16.0 Hypertensive urgency; D64.9 Anemia, unspecified; Z99.2 Dependence on renal dialysis; Z79.4 Long term (current) use of insulin; R07.9 Chest pain, unspecified; E87.5 Hyperkalemia
CPT/HCPCS: 71010; 73200; 80048; 80053; 82550; 82553; 82962; 83036; 84484; 85025; 85610; 85730; 87070; 87102; 87116; 90935; 93005; 93931; 93970; 96374; 96375; J0360; J0610; J0690; J0696; J1170; J1644; J1815; J2270; J2405; J2765; J2795; J3370; P9047; Q9967

== ENCOUNTER 2017-01-24 12:14 | Emergency (ER) | payer MEDICARE, OTHER ==
[~2017-01-24] VITALS: Ht 152.4 cm; Wt 52.0 kg
[2017-01-24 12:14] VITALS: Ht 152.4 cm; Wt 52.0 kg
[~2017-01-24 12:14] MED LIST changes: +CLON0.2T12 PO; +DOXY100T20 PO; +METO5TAB11 PO
[2017-01-24] MEDS ORDERED: HYDROmorphONE 1 MG/ML SYG IV STA ×2 (14:32→16:45)
[2017-01-24] MEDS ORDERED: ONDANSETRON 4 MG INJ IV STA (14:32)
[2017-01-24 15:18] LABS: POTASSIUM 4.8 mmol/L (3.5-5.1)
[2017-01-24 15:22] LABS: CALCIUM 8.5 mg/dl (8.4-10.2)
[2017-01-24] MEDS ORDERED: NOVO3I SC (15:44)
[2017-01-24] MEDS ORDERED: HYDR-3671 PO (15:45)
[2017-01-24] MEDS ORDERED: CLON-379 PO (15:47)
[2017-01-24] MEDS ORDERED: SEVE800T7 PO (15:47)
[2017-01-24] MEDS ORDERED: ASPI81TA3 PO (15:47)
[2017-01-24] MEDS ORDERED: ACET1TAB40 PO (15:48)
[2017-01-24] MEDS ORDERED: BUPIVACAINE 0.5% (SDV) 30 ML INJ INJ ONE (16:30)
[2017-01-24] MEDS ORDERED: NICARDipine HCL 30 MG CAPSULE PO ONE (17:30)
[2017-01-24] MEDS ORDERED: hydrALAzine 20 MG INJ IV ONE (17:30)
[2017-01-24] MEDS ORDERED: HYDR-902 PO (17:34)
--- NOTE | 2017-01-24 17:43 | ERD ---
ER Documentation Chief Complaint Date/Time DATE: 01/24/17 TIME: 17:36 Chief Complaint Complains of Bilateral leg pain HX of Dialysis HPI This is a 56-year-old dialysis patient is complaining of 2 weeks of bilateral leg pain burning and worse at night starts at bilateral fibular heads and radiates down the sides of the tib-fib. Patient can ambulate with says that she has been taking pain medicine at home usually Tylenol, that helps but the past 3-4 days is not helping anymore. Patient went to dialysis on Wednesday. No weakness no neurological symptoms the pain is not worse with walking is constant and chronic. No erythema no swelling of the legs or calves no trauma or falls ROS All systems reviewed and are negative except as per history of present illness. Medications Home Meds Active Scripts Hydrocodone/Acetaminophen ([place] 10-325 Tablet) 1 Each Tablet, 1 TAB PO Q6H Y for PAIN, #20 TAB Prov:GIANLUCA GOMEZ DO 01/24/17 Doxycycline Hyclate* (Doxycycline Hyclate*) 100 Mg Tablet.dr, 100 MG PO BID for 10 Days, TAB Prov:DORINA BECKER MD 12/26/16 Metoclopramide Hcl* (Metoclopramide Hcl*) 5 Mg Tablet, 5 MG PO TID for 28 Days, TAB Prov:DORINA BECKER MD 12/26/16 Clonidine Hcl* (Catapres*) 0.2 Mg Tablet, 0.2 MG PO Q8 for 28 Days, TAB Prov:DORINA BECKER MD 12/26/16 Hydralazine Hcl* (Hydralazine Hcl*) 50 Mg Tab, 100 MG PO TID for 30 Days, TAB Prov:SHIRA BOBO NP 09/29/16 Metoprolol Tartrate* (Lopressor*) 50 Mg Tab, 50 MG PO BID for 30 Days, TAB Prov:SHIRA BOBO NP 09/29/16 Amlodipine Besylate* (Amlodipine Besylate*) 10 Mg Tablet, 10 MG PO DAILY for 30 Days, TAB Prov:SHIRA BOBO NP 09/29/16 Reported Medications Acetaminophen with Codeine (Acetaminophen-Cod #3 Tablet) 1 Each Tablet, 1 TAB PO Q6H Y for PAIN LEVEL 1-5, #7 TAB 01/24/17 Clonidine Hcl* (Clonidine Hcl*) 0.1 Mg Tab, 0.1 MG PO Q4H Y for FOR HTN, TAB 01/24/17 Sevelamer Carbonate* (Renvela*) 800 Mg Tablet, 1.6 GM PO WITH MEALS, TAB 01/24/17 Aspirin* (Aspirin* Chew) 81 Mg Tab.chew, 81 MG PO DAILY, TAB.CHEW 01/24/17 Hydralazine Hcl* (Hydralazine Hcl*) 25 Mg Tab, 25 MG PO Q8 Y for HYPERTENSION, # 90 TAB 01/24/17 Insulin Aspart* (Novolog Insulin Pen*) 100 Unit/Ml Soln, 0-12 SC .SLIDING SCALE AC, EA 01/24/17 Insulin Glargine* (Lantus*) 100 Unit/Ml Soln, 16 UNIT SC QHS, #1 VIAL 09/26/16 Lisinopril* (Lisinopril*) 10 Mg Tablet, 10 MG PO BID, #30 TAB 09/26/16 Pantoprazole* (Pantoprazole*) 40 Mg Tablet.dr, 40 MG PO DAILY, TAB 09/26/16 Multivit/Ca Carb/B Cmplx/Fa* (Tory-Deven*) 1 Tab Tab, 1 TAB PO DAILY, TAB 08/22/14 Folic Acid* (Folic Acid*) 1 Mg Tablet, 1 MG PO DAILY, TAB 08/22/14 Allergies Allergies: Coded Allergies: cortisone (Verified Allergy, Unknown, 09/26/16) VOMIT hydrocodone (Verified Adverse Reaction, Mild, nausea, 09/26/16) PMhx/Soc History of Surgery: Yes (CHOLECYSTECTOMY) Anesthesia Reaction: No Hx Neurological Disorder: Yes (EFT SIDED WEAKNESS) Hx Respiratory Disorders: No Hx Cardiac Disorders: Yes (HTN) Hx Psychiatric Problems: No Hx Miscellaneous Medical Probl: No Hx Alcohol Use: No Hx Substance Use: No Hx Tobacco Use: Yes (FORMER SMOKER) Smoking Status: Never smoker FmHx Family History: No coronary disease Physical Exam Vitals Vital Signs Date Time Temp Pulse Resp B/P Pulse Ox O2 Delivery O2 Flow Rate FiO2 01/24/17 12:14 98.6 86 20 98 Physical Exam Const: Well-developed, well-nourished Head: Atraumatic, normocephalic Eyes: Normal Conjunctiva, PERRLA, EOMI, normal sclera, no nystagmus ENT: Normal External Ears, Nose and Mouth, moist mucus membranes. Neck: Full range of motion. No meningismus, no lymphadenopathy. Resp: Clear to auscultation bilaterally, no wheezing, rhonchi, rales Cardio: Regular rate and rhythm, no murmurs, S1 S2 present Abd: Soft, non tender x 4, non distended. Normal bowel sounds, no guarding or rebound, no pulsitile abdominal masses or bruits Skin: No petechiae or rashes, no ecchymosis , no maculopapular rash Back: No midline or flank tenderness Ext: No cyanosis, or edema, FROM x 4, normal inspection, neurovascularly intact x 4, there is bilateral bounding dorsalis pedis pulse feet are warm. There is reproducible tenderness when you palpate behind both fibular heads. Tapping on this area/nerve will induce shooting pain down the legs bilaterally. Neur: Awake and alert, STR 5/5 x 4, sensation intact x 4, no focal findings, cerebellum intact Psych: Normal Mood and Affect Result Diagram: 01/24/17 1500 Results 24 hrs Laboratory Tests Test 01/24/17 15:00 Sodium Level 133mmol/L Potassium Level 4.8mmol/L Chloride Level 94mmol/L Carbon Dioxide Level 21mmol/L Anion Gap 23 Blood Urea Nitrogen 60mg/dl Creatinine 8.00mg/dl Glucose Level 269mg/dl Calcium Level 8.5mg/dl Current Medications Medications (Trade) Dose Ordered Sig/Milagro Route PRN Reason Start Time Stop Time Status Last Admin Dose Admin Hydromorphone HCl (Dilaudid) 1 mg ONCE STAT IV 01/24/17 14:32 01/24/17 14:33 DC 01/24/17 14:54 Ondansetron HCl (Zofran Inj) 4 mg ONCE STAT IV 01/24/17 14:32 01/24/17 14:33 DC 01/24/17 14:54 Bupivacaine HCl (Marcaine 0.5% (Sdv)) 3 ml ONCE ONCE INJ 01/24/17 16:30 01/24/17 16:31 DC Hydromorphone HCl (Dilaudid) 1 mg ONCE STAT IV 01/24/17 16:45 01/24/17 16:46 DC 01/24/17 16:52 Nicardipine HCl (Cardene) 30 mg ONCE ONCE PO 01/24/17 17:30 01/24/17 17:31 DC 01/24/17 17:16 Hydralazine HCl (Apresoline) 10 mg ONCE ONCE IV 01/24/17 17:30 01/24/17 17:31 DC 01/24/17 17:17 Procedures/MDM Patient was given blood pressure medication for her elevated BP and is now 160s over 60s Potassium is normal Procedure: Left common peroneal nerve block by me The skin was cleaned with alcohol swabs and I injected 3 cc of 0.5% bupivacaine into the left common peroneal nerve resulting in complete adequate anesthesia and reduction of pain Procedure: Right fibular nerve block by me The skin was cleaned with alcohol swabs and I injected 3 cc of 0.5% bupivacaine into the right fibular nerve resulting in complete adequate anesthesia and reduction of pain Patient has bilateral neuropathy is likely from her diabetes. After the nerve blocks the patient feels significant relief. Blood pressures under control will discharge home with [facility] Diagnosis: Primary Impression: Neuropathy Condition: Stable Patient Instructions: Neuropathy, Peripheral GIANLUCA GOMEZ DO Jan 24, 2017 17:43
[2017-01-24 17:49] VITALS: BP 164/74; PULSE 74; RESP 20
== END 2017-01-24 17:51 | disposition home or self-care (01) ==
LOC: E/R 12:14
DX: G62.9 Polyneuropathy, unspecified (principal); M79.605 Pain in left leg; I12.0 Hypertensive chronic kidney disease with stage 5 chronic kidney disease or end stage renal disease; N18.6 End stage renal disease; E11.9 Type 2 diabetes mellitus without complications; Z87.891 Personal history of nicotine dependence; Z99.2 Dependence on renal dialysis; Z79.4 Long term (current) use of insulin; Z79.82 Long term (current) use of aspirin
CPT/HCPCS: 80048; 96374; 96375; 96376; 99284; J0360; J1170; J2405

== ENCOUNTER 2017-02-17 18:19 | Emergency (ER) | payer MEDICARE, OTHER ==
[~2017-02-17] VITALS: Ht 152.4 cm; Wt 39.0 kg
[~2017-02-17 18:19] MED LIST changes: +ACET1TAB40 PO; -APR50 PO; +ASPI81TA3 PO; +CLON-379 PO; +HYDR-3671 PO; +HYDR-3672 PO; +HYDR-902 PO; +NOVO3I SC; +SEVE800T7 PO
[2017-02-17 18:58] VITALS: Ht 152.4 cm; Wt 39.0 kg
[2017-02-17] MEDS ORDERED: NPH,100V SQ (20:49)
[2017-02-17] MEDS ORDERED: CATTTS1 TD (20:52)
[2017-02-17] MEDS ORDERED: morphine 2 MG INJ IV ONE (21:00)
[2017-02-17] MEDS ORDERED: ONDANSETRON 4 MG INJ IV ONE (21:00)
--- NOTE | 2017-02-17 21:37 | RADRPT ---
PROCEDURE: Portable chest x-ray. CLINICAL INDICATION: Injury, chest pain. TECHNIQUE: Portable AP view of the chest. COMPARISON: 12/20/2016. FINDINGS: No pulmonary edema or conolidation is identified. There is linear atelectasis or scarring left mid l david. The cardiac silhouette is not enlarged. There are aortic calcifications. No pleural effusion i s seen. There is no pneumothorax. No fracture is identified. IMPRESSION: 1. No radiographic evidence of traumatic chest injury. 2. Aortic atherosclerosis. RPTAT: HTAR .Edson Quintana MD, MD Date Time Electronically viewed and signed by .Edson Quintana MD, MD on 02/17/2017 21:37 .R/
--- NOTE | 2017-02-17 21:39 | RADRPT ---
PROCEDURE: Left rib x-rays CLINICAL INDICATION: Chest pain. TECHNIQUE: 3 views of the left ribs. COMPARISON: None available. FINDINGS: No displaced rib fracture is identified. There is no pneumothorax. There is linear atelectasis or s carring in the left mid lung. The cardiac silhouette is not enlarged. There are aortic calcificati ons. There is no pleural effusion. IMPRESSION: 1. No rib fracture is identified, although the presence of a nondisplaced rib fracture cannot be ex cluded. RPTAT: HTAR .Edson Quintana MD, MD Date Time Electronically viewed and signed by .Edson Quintana MD, on 02/17/2017 21:38 .R/
[2017-02-17] MEDS ORDERED: HYDR-906 PO (22:28)
[2017-02-17] MEDS ORDERED: METH500T PO (22:28)
--- NOTE | 2017-02-17 22:35 | ERD ---
ER Documentation Chief Complaint Date/Time DATE: 02/17/17 TIME: 22:31 Chief Complaint dialyzed today,bilateral leg pain, left flank pain HPI This is a 56-year-old dialysis patient who went to dialysis this afternoon.. The patient was getting up out of a chair and trying to get a hold of her walker when she lost her boom cat operator and fell back into her chair that she was trying to get out of. She says she hit her back left rib cage on the back of the chair. She is complaining of sharp pain to the left lower posterior rib cage and upper left lumbar region. No shortness of breath no head injury no loss of consciousness denies any extremity pain chest pain abdominal pain ROS All systems reviewed and are negative except as per history of present illness. Medications Home Meds Active Scripts Methocarbamol* (Robaxin*) 500 Mg Tab, 500 MG PO Q12, #10 TAB Prov:GIANLUCA GOMEZ DO 02/17/17 Hydrocodone/Acetaminophen ([place] 5-325 Tablet) 1 Each Tablet, 1 TAB PO Q6H Y for PAIN, #20 TAB Prov:GIANLUCA GOMEZ DO 02/17/17 Reported Medications Clonidine Patch (CATAPRES PATCH) Unknown Strength Patch, 1 PATCH TD, #4 PATCH.WK 02/17/17 Insulin NPH Human Isophane (Humulin N) 100 Unit/1 Ml Vial, 0 SQ SLIDING SCALES, VIAL 02/17/17 Acetaminophen with Codeine (Acetaminophen-Cod #3 Tablet) 1 Each Tablet, 1 TAB PO Q6H Y for PAIN LEVEL 1-5, #7 TAB 01/24/17 Clonidine Hcl* (Clonidine Hcl*) 0.1 Mg Tab, 0.1 MG PO Q4H Y for FOR HTN, TAB 01/24/17 Sevelamer Carbonate* (Renvela*) 800 Mg Tablet, 1.6 GM PO WITH MEALS, TAB 01/24/17 Aspirin* (Aspirin* Chew) 81 Mg Tab.chew, 81 MG PO DAILY, TAB.CHEW 01/24/17 Hydralazine Hcl* (Hydralazine Hcl*) 25 Mg Tab, 25 MG PO Q8 Y for HYPERTENSION, # 90 TAB 01/24/17 Insulin Glargine* (Lantus*) 100 Unit/Ml Soln, 16 UNIT SC QHS, #1 VIAL 09/26/16 Lisinopril* (Lisinopril*) 10 Mg Tablet, 10 MG PO BID, #30 TAB 09/26/16 Pantoprazole* (Pantoprazole*) 40 Mg Tablet.dr, 40 MG PO DAILY, TAB 09/26/16 Multivit/Ca Carb/B Cmplx/Fa* (Tory-Deven*) 1 Tab Tab, 1 TAB PO DAILY, TAB 08/22/14 Folic Acid* (Folic Acid*) 1 Mg Tablet, 1 MG PO DAILY, TAB 08/22/14 Discontinued Reported Medications Insulin Aspart* (Novolog Insulin Pen*) 100 Unit/Ml Soln, 0-12 SC .SLIDING SCALE AC, EA 01/24/17 Discontinued Scripts Hydrocodone/Acetaminophen ([place] 10-325 Tablet) 1 Each Tablet, 1 TAB PO Q6H Y for PAIN, #20 TAB Prov:GIANLUCA GOMEZ DO 01/24/17 Doxycycline Hyclate* (Doxycycline Hyclate*) 100 Mg Tablet., 100 MG PO BID for 10 Days, TAB Prov:DORINA BECKER MD 12/26/16 Metoclopramide Hcl* (Metoclopramide Hcl*) 5 Mg Tablet, 5 MG PO TID for 28 Days, TAB Prov:DORINA BECKER MD 12/26/16 Clonidine Hcl* (Catapres*) 0.2 Mg Tablet, 0.2 MG PO Q8 for 28 Days, TAB Prov:DORINA BECKER MD 12/26/16 Hydralazine Hcl* (Hydralazine Hcl*) 50 Mg Tab, 100 MG PO TID for 30 Days, TAB Prov:SHIRA BOBO NP 09/29/16 Metoprolol Tartrate* (Lopressor*) 50 Mg Tab, 50 MG PO BID for 30 Days, TAB Prov:SHIRA BOBO NP 09/29/16 Amlodipine Besylate* (Amlodipine Besylate*) 10 Mg Tablet, 10 MG PO DAILY for 30 Days, TAB Prov:SHIRA BOBO NP 09/29/16 Allergies Allergies: Coded Allergies: cortisone (Verified Allergy, Unknown, 02/17/17) VOMIT hydrocodone (Verified Adverse Reaction, Mild, nausea, 02/17/17) PMhx/Soc History of Surgery: Yes (CHOLECYSTECTOMY, APPENDECTOMY ) Anesthesia Reaction: No Hx Neurological Disorder: Yes Hx Respiratory Disorders: No Hx Cardiac Disorders: Yes (HTN) Hx Psychiatric Problems: No Hx Miscellaneous Medical Probl: Yes (DM, ESRF) Hx Alcohol Use: No Hx Substance Use: No Hx Tobacco Use: Yes Smoking Status: Current every day smoker FmHx Family History: No coronary disease Physical Exam Vitals Vital Signs Date Time Temp Pulse Resp B/P Pulse Ox O2 Delivery O2 Flow Rate FiO2 02/17/17 21:35 67 12 186/61 100 02/17/17 20:38 89 13 186/61 100 Room Air 02/17/17 18:58 97.8 96 20 188/76 100 Physical Exam Const: Well-developed, well-nourished Head: Atraumatic, normocephalic Eyes: Normal Conjunctiva, PERRLA, EOMI, normal sclera, no nystagmus ENT: Normal External Ears, Nose and Mouth, moist mucus membranes. Neck: Full range of motion. No meningismus, no lymphadenopathy. Resp: Clear to auscultation bilaterally, no wheezing, rhonchi, rales Cardio: Regular rate and rhythm, no murmurs, S1 S2 present, tenderness and reproducible pain when you palpate the left lower mid scapular line rib cage region around ribs 10-11, and the left upper lumbar region Abd: Soft, non tender x 4, non distended. Normal bowel sounds, no guarding or rebound, no pulsitile abdominal masses or bruits Skin: No petechiae or rashes, no ecchymosis , no maculopapular rash Back: No midline or flank tenderness Ext: No cyanosis, or edema, FROM x 4, normal inspection, neurovascularly intact x 4 Neur: Awake and alert, STR 5/5 x 4, sensation intact x 4, no focal findings, cerebellum intact Psych: Normal Mood and Affect Results 24 hrs Current Medications Medications (Trade) Dose Ordered Sig/Milagro Route PRN Reason Start Time Stop Time Status Last Admin Dose Admin Morphine Sulfate (morphine) 4 mg ONCE ONCE IV 02/17/17 21:00 02/17/17 21:01 DC 02/17/17 20:54 Ondansetron HCl (Zofran Inj) 4 mg ONCE ONCE IV 02/17/17 21:00 02/17/17 21:01 DC 02/17/17 20:54 Procedures/MDM PROCEDURE: Portable chest x-ray. CLINICAL INDICATION: Injury, chest pain. TECHNIQUE: Portable AP view of the chest. COMPARISON: 12/20/2016. FINDINGS: No pulmonary edema or conolidation is identified. There is linear atelectasis or scarring left mid lung. The cardiac silhouette is not enlarged. There are aortic calcifications. No pleural effusion is seen. There is no pneumothorax. No fracture is identified. IMPRESSION: 1. No radiographic evidence of traumatic chest injury. 2. Aortic atherosclerosis. RPTAT: HTAR .Edson Quintana MD, MD Date Time Electronically viewed and signed by .Edson Quintana MD, MD on 02/17/2017 21:37 .R/ CC: GIANLUCA GOMEZ DO PROCEDURE: Left rib x-rays CLINICAL INDICATION: Chest pain. TECHNIQUE: 3 views of the left ribs. COMPARISON: None available. FINDINGS: No displaced rib fracture is identified. There is no pneumothorax. There is linear atelectasis or scarring in the left mid lung. The cardiac silhouette is not enlarged. There are aortic calcifications. There is no pleural effusion. IMPRESSION: 1. No rib fracture is identified, although the presence of a nondisplaced rib fracture cannot be excluded. RPTAT: HTAR .Edson Quintana MD, MD Date Time Electronically viewed and signed by .Edson Quintana MD, MD on 02/17/2017 21:38 .R/ CC: GIANLUCA GOMEZ DO No evidence of chest injury or rib fracture Departure Diagnosis: Primary Impression: Contusion of rib Encounter type: initial encounter Laterality: left Qualified Code: S20.212A - Contusion of rib, left, initial encounter Additional Impression: Back contusion Encounter type: initial encounter Laterality: left Qualified Code: S20.222A - Back contusion, left, initial encounter Condition: Stable Patient Instructions: Rib: Contusion Vs Minor Fracture, Contusion, Back (Child) Referrals: DORINA BECKER MD (PCP) GIANLUCA GOMEZ DO Feb 17, 2017 22:35
[2017-02-17] MEDS ORDERED: HYDROmorphONE 1 MG/ML SYG IV STA (22:54)
[2017-02-17 23:27] VITALS: BP 154/61; PULSE 78; RESP 14
== END 2017-02-17 23:29 | disposition home or self-care (01) ==
LOC: E/R 18:19
DX: S20.212A Contusion of left front wall of thorax, initial encounter (principal); S20.222A Contusion of left back wall of thorax, initial encounter; I10 Essential (primary) hypertension; E11.9 Type 2 diabetes mellitus without complications; W07.XXXA Fall from chair, initial encounter; Y92.9 Unspecified place or not applicable; Z79.4 Long term (current) use of insulin; Z79.82 Long term (current) use of aspirin
CPT/HCPCS: 71010; 71100; J1170; J2270; J2405; 96374; 96375

== ENCOUNTER 2017-06-23 16:37 | Emergency (ER) | payer MEDICARE, OTHER ==
[~2017-06-23] VITALS: Wt 85.0 kg
[~2017-06-23 16:37] MED LIST changes: -AMLO-147 PO; +CATTTS1 TD; -CLON0.2T12 PO; -DOXY100T20 PO; -HYDR-3672 PO; -HYDR-902 PO; +HYDR-906 PO; +METH500T PO; -METO-429 PO; -METO5TAB11 PO; -NOVO3I SC; +NPH,100V SQ
== END 2017-06-23 19:49 | disposition left against medical advice (07) ==
LOC: E/R 16:37
DX: Z53.21 Procedure and treatment not carried out due to patient leaving prior to being seen by health care provider (principal)

== ENCOUNTER 2017-07-03 17:55 | Emergency (ER) | payer MEDICARE, OTHER ==
[~2017-07-03] VITALS: Ht 157.5 cm; Wt 34.1 kg
[2017-07-03 18:08] VITALS: Ht 157.5 cm; Wt 34.1 kg
[2017-07-03] MEDS ORDERED: DEXTROSE 50% 50 ML SYRINGE ONE (18:22)
[2017-07-03] MEDS ORDERED: ONDANSETRON 4 MG INJ ONE (18:22)
[2017-07-03] MEDS ORDERED: DEXTROSE 5%-0.9% NACL 1,000 ML IV STA (18:24)
[2017-07-03] MEDS ORDERED: ONDANSETRON 4 MG INJ IV STA (18:24)
[2017-07-03] MEDS ORDERED: DEXTROSE 50% 50 ML SYRINGE IV STA (18:24)
[2017-07-03 18:46] LABS: BASOPHILS % 0.5 % (0.0-2.0); EOSINOPHILS # 0.2 10^3/ul (0.0-0.5); HEMOGLOBIN 13.1 g/dl (12.0-16.0); LYMPHOCYTES # 1.3 10^3/ul (0.8-2.9); LYMPHOCYTES % 16.5 % (15.0-51.0); MEAN CORPUSCULAR HEMOGLOBIN 32.3 pg (29.0-33.0); MEAN CORPUSCULAR HGB CONC 32.8 g/dl (32.0-37.0); MEAN CORPUSCULAR VOLUME 98.5 fl (82.0-101.0); MEAN PLATELET VOLUME 12.2 fl (7.4-10.4); MONOCYTE # 0.5 10^3/ul (0.3-0.9); MONOCYTES % 6.2 % (0.0-11.0); PLATELET COUNT 240 10^3/UL (140-415); RED BLOOD COUNT 4.06 10^6/ul (4.20-5.40); RED CELL DISTRIBUTION WIDTH 16.1 % (11.5-14.5)
[2017-07-03 18:48] LABS: URINE BLOOD (Dip) POC 2+ (NEGATIVE)
[2017-07-03 19:03] LABS: INR 0.96; PROTIME 12.8 Sec (12.2-14.2)
[2017-07-03 19:04] LABS: PARTIAL THROMBOPLASTIN TIME 29.5 Sec (25.0-35.0)
[2017-07-03 19:06] LABS: ANION GAP 19 (8-16); BLOOD UREA NITROGEN 25 mg/dl (7-20); CALCIUM 8.8 mg/dl (8.4-10.2); CARBON DIOXIDE 28 mmol/L (21-31); CHLORIDE 97 mmol/L (97-110); CREATININE 6.97 mg/dl (0.44-1.00); GLUCOSE 87 mg/dl (70-220); POTASSIUM 3.6 mmol/L (3.5-5.1); SODIUM 140 mmol/L (135-144)
[2017-07-03 19:21] LABS: TROPONIN-I < 0.012 ng/ml (0.00-0.12)
--- NOTE | 2017-07-03 19:46 | RADRPT ---
PROCEDURE: XR Chest. CLINICAL INDICATION: Chest pain. Hypoglycemia TECHNIQUE: Portable AP semi erect view of the chest was obtained. COMPARISON: 02/17/2017 FINDINGS: The cardiomediastinal silhouette is within upper normal limits. The lungs are of acute infiltrates, linear scarring or subsegmental atelectasis in the lateral left midlung is again noted. There is n o evidence for pleural effusion, pneumothorax or pulmonary vascular congestion. The osseous structu res are intact with no evidence for acute abnormality. Calcification is visible within the aorta. RPTAT:HJJR IMPRESSION: 1. Minimal linear scarring or chronic subsegmental atelectasis within the left mid lung without day dence for acute intrathoracic pathology. 2. Aortic atherosclerosis is present. Physician Yoon Date Time Electronically viewed and signed by Physician Yoon on 07/03/2017 19:46 /
[2017-07-03 21:35] VITALS: TEMP 98.2
--- NOTE | 2017-07-03 22:28 | ERD ---
ER Documentation Chief Complaint Date/Time DATE: 07/03/17 TIME: 22:28 Chief Complaint HYPOGLYCEMIC BGS 25 AT HOME, 1MG GLUCAGON GIVEN BGS 53. DIALYSIS PATIENT HPI 57-year-old female with a history of diabetes end-stage renal disease on hemodialysis with last dialysis yesterday and history of hypertension presenting by ambulance for hypoglycemia. Her sugar was in the 20s at home. She was given a dose of glucagon as IV access was difficult. Her blood sugar improved to the 50s. When she was brought here an IV was placed. The patient is still somewhat confused and unable to answer questions. She does complain of nausea, slight chest pain, and headache. She denies any nausea or vomiting today. Per her daughter, she did not fall and she was just laying on the couch when this happened. She is currently confused per daughter ROS Limited secondary to altered mental status Medications Home Meds Reported Medications Insulin NPH Human Isophane (Humulin N) 100 Unit/1 Ml Vial, 0 SQ SLIDING SCALES, VIAL 02/17/17 Clonidine Hcl* (Clonidine Hcl*) 0.1 Mg Tab, 0.1 MG PO Q4H Y for FOR HTN, TAB 01/24/17 Sevelamer Carbonate* (Renvela*) 800 Mg Tablet, 1.6 GM PO WITH MEALS, TAB 01/24/17 Aspirin* (Aspirin* Chew) 81 Mg Tab.chew, 81 MG PO DAILY, TAB.CHEW 01/24/17 Hydralazine Hcl* (Hydralazine Hcl*) 25 Mg Tab, 25 MG PO Q8 Y for HYPERTENSION, # 90 TAB 01/24/17 Insulin Glargine* (Lantus*) 100 Unit/Ml Soln, 16 UNIT SC QHS, #1 VIAL 09/26/16 Lisinopril* (Lisinopril*) 10 Mg Tablet, 10 MG PO BID, #30 TAB 09/26/16 Pantoprazole* (Pantoprazole*) 40 Mg Tablet.dr, 40 MG PO DAILY, TAB 09/26/16 Multivit/Ca Carb/B Cmplx/Fa* (Tory-Deven*) 1 Tab Tab, 1 TAB PO DAILY, TAB 08/22/14 Folic Acid* (Folic Acid*) 1 Mg Tablet, 1 MG PO DAILY, TAB 08/22/14 Discontinued Reported Medications Clonidine Patch (CATAPRES PATCH) Unknown Strength Patch, 1 PATCH TD, #4 PATCH.WK 02/17/17 Acetaminophen with Codeine (Acetaminophen-Cod #3 Tablet) 1 Each Tablet, 1 TAB PO Q6H Y for PAIN LEVEL 1-5, #7 TAB 01/24/17 Discontinued Scripts Methocarbamol* (Robaxin*) 500 Mg Tab, 500 MG PO Q12, #10 TAB Prov:LEKKOS,APOSTOLOS A. DO 02/17/17 Hydrocodone/Acetaminophen ([place] 5-325 Tablet) 1 Each Tablet, 1 TAB PO Q6H Y for PAIN, #20 TAB Prov:LEKKOS,APOSTOLOS A. DO 02/17/17 Allergies Allergies: Coded Allergies: cortisone (Verified Allergy, Unknown, 07/03/17) VOMIT hydrocodone (Verified Adverse Reaction, Mild, nausea, 07/03/17) PMhx/Soc History of Surgery: Yes (CHOLECYSTECTOMY, APPENDECTOMY ) Anesthesia Reaction: No Hx Neurological Disorder: Yes Hx Respiratory Disorders: No Hx Cardiac Disorders: Yes (HTN) Hx Psychiatric Problems: No Hx Miscellaneous Medical Probl: Yes (DM, ESRF) Hx Alcohol Use: No Hx Substance Use: No Hx Tobacco Use: Yes Smoking Status: Current every day smoker FmHx Family History: other (Unable to obtain) Physical Exam Vitals Vital Signs Date Time Temp Pulse Resp B/P Pulse Ox O2 Delivery O2 Flow Rate FiO2 07/03/17 19:34 61 16 151/57 99 Room Air 07/03/17 18:08 95.1 68 17 162/70 99 Physical Exam Const: Chronically ill-appearing, nontoxic, appears uncomfortable, No diaphoresis Head: Atraumatic Eyes: Normal Conjunctiva, PERRLA, EOMI ENT: Dry mucous membranes Neck: Full range of motion..~ No meningismus. Resp: Clear to auscultation bilaterally Cardio: Regular rate and rhythm, no murmurs Abd: Soft, non tender, non distended.Midline surgical scar noted. Normal bowel sounds Skin: No petechiae or rashes Back: No midline or flank tenderness Ext: No cyanosis, or edema. Right upper extremity fistula with dressing in place Neur: Awake and alert,No facial asymmetry Oriented to self and place only, Strength and sensations grossly intact Psych: Normal Mood and Affect Result Diagram: 07/03/17 1800 9/2/17 1800 Results 24 hrs Laboratory Tests Test 07/03/17 18:00 07/03/17 18:18 07/03/17 18:54 07/03/17 19:03 White Blood Count 8.010^3/ul Red Blood Count 4.0610^6/ul Hemoglobin 13.1g/dl Hematocrit 40.0% Mean Corpuscular Volume 98.5fl Mean Corpuscular Hemoglobin 32.3pg Mean Corpuscular Hemoglobin Concent 32.8g/dl Red Cell Distribution Width 16.1% Platelet Count 19387^3/UL Mean Platelet Volume 12.2fl Neutrophils % 74.0% Lymphocytes % 16.5% Monocytes % 6.2% Eosinophils % 2.0% Basophils % 0.5% Nucleated Red Blood Cells % 0.0/100WBC Neutrophils # (Manual) 5.910^3/ul Lymphocytes # 1.310^3/ul Monocytes # 0.510^3/ul Eosinophils # 0.210^3/ul Basophils # 0.010^3/ul Nucleated Red Blood Cells # 0.010^3/ul Prothrombin Time 12.8Sec Prothrombin Time Ratio 1.0 INR International Normalized Ratio 0.96 Activated Partial Thromboplast Time 29.5Sec Sodium Level 140mmol/L Potassium Level 3.6mmol/L Chloride Level 97mmol/L Carbon Dioxide Level 28mmol/L Anion Gap 19 Blood Urea Nitrogen 25mg/dl Creatinine 6.97mg/dl Glucose Level 87mg/dl Calcium Level 8.8mg/dl Troponin I < 0.012ng/ml Bedside Glucose 84mg/dL 408mg/dL Bedside Urine pH (LAB) 7.0 Bedside Urine Protein (LAB) 3+ Bedside Urine Glucose (UA) 0.50% Bedside Urine Ketones (LAB) Negative Bedside Urine Blood 2+ Bedside Urine Nitrite (LAB) Negative Bedside Urine Leukocyte Esterase (L Trace Test 07/03/17 20:02 07/03/17 21:12 07/03/17 22:01 Bedside Glucose 439mg/dL 407mg/dL 354mg/dL Current Medications Medications (Trade) Dose Ordered Sig/Milagro Route PRN Reason Start Time Stop Time Status Last Admin Dose Admin Ondansetron HCl (Zofran Inj) 4 mg STK-MED ONCE .ROUTE 07/03/17 18:22 07/03/17 18:23 DC Dextrose (D50w Syringe) 50 ml STK-MED ONCE .ROUTE 07/03/17 18:22 07/03/17 18:23 DC Dextrose 50 ml 50 ml ONCE STAT IV 07/03/17 18:24 07/03/17 18:25 DC 07/03/17 18:29 Dextrose/Sodium Chloride (D5-NS) 1,000 ml @ 100 mls/hr Q10H STAT IV 07/03/17 18:24 07/04/17 04:23 07/03/17 18:30 Ondansetron HCl (Zofran Inj) 4 mg ONCE STAT IV 07/03/17 18:24 07/03/17 18:25 DC 07/03/17 18:29 Procedures/MDM Labs CBC: no anemia or evidence of infection CMP: Evidence of chronic kidney disease, otherwise normal, no electrolyte abnormality Troponin within normal limits UA: no evidence of infection EKG: Rate/Rhythm: Normal Sinus Rhythm QRS, ST, T-waves: Prolonged QTC 564, no changes consistent w/ acute ischemia Impression: No evidence of ischemia or arrhythmia Chest x-ray shows no acute abnormalities.. [facility] Patient is presenting with altered mental status and hypoglycemia which improved with glucagon. When she arrived her sugar was in the 80s but she was still confused so I gave her an amp of D50. I started her on D5 NS. The patient's symptoms slowly improved. Per daughter, upon reevaluation, she was back to baseline. Her labs did not show any significant abnormalities. There is no evidence of sepsis.I have a lower suspicion for acute coronary syndrome, stroke, intracranial hemorrhage. I believe the patient is stable for discharge at this time. Her blood sugar has remained stable while here off the IV D5 fluids. Patient will be discharged home. Return precautions were discussed. Hypoglycemia precautions were also discussed Departure Diagnosis: Primary Impression: Hypoglycemia due to insulin Condition: Stable EKEUFEMIA ROSS MD Jul 03, 2017 22:28
[2017-07-03 23:53] VITALS: BP 171/78; PULSE 60; RESP 16
== END 2017-07-03 23:50 | disposition home or self-care (01) ==
LOC: E/R 17:55
DX: E11.649 Type 2 diabetes mellitus with hypoglycemia without coma (principal); I12.0 Hypertensive chronic kidney disease with stage 5 chronic kidney disease or end stage renal disease; N18.6 End stage renal disease; F17.210 Nicotine dependence, cigarettes, uncomplicated; Z79.4 Long term (current) use of insulin; Z79.82 Long term (current) use of aspirin; Z99.2 Dependence on renal dialysis
CPT/HCPCS: 36415; 71010; 80048; 81003; 82962; 84484; 85025; 85610; 85730; 93005; 96374; 96375; 99285; J2405; J7042

== ENCOUNTER 2017-12-13 01:00 | Emergency (ER) | END 2017-12-13 03:11 | disposition home or self-care (01) ==

== ENCOUNTER 2018-02-08 05:41 | Inpatient (IN) | END 2018-02-17 22:15 | DRG 252 ==

== ENCOUNTER 2018-02-17 22:30 | Inpatient (IN) | END 2018-02-28 18:00 | disposition home health service (06) | DRG 91 ==

== ENCOUNTER 2018-05-27 04:18 | Emergency (ER) | END 2018-05-27 06:23 | disposition home or self-care (01) ==

== ENCOUNTER 2018-10-10 13:38 | Inpatient (IN) | END 2018-10-23 12:23 | disposition home or self-care (01) | DRG 291 ==

== ENCOUNTER 2019-07-08 21:12 | Inpatient (IN) | payer MEDICARE, OTHER ==
[~2019-07-08] VITALS: Ht 152.4 cm; Wt 49.5 kg
[~2019-07-08 21:12] MED LIST changes: -ACET1TAB40 PO; +ASPI-903 PO; -ASPI81TA3 PO; +CARV25TA79 PO; -CATTTS1 TD; +CLON1PAT3 TD; +DOXY100T2 PO; +DULO30CA45 PO; +FER325 PO; -HYDR-906 PO; -LISI10TA2 PO; +LISI40TA3 PO; -METH500T PO; +TRAM50TA2 PO
[2019-07-08] MEDS ORDERED: morphine 4 MG/ML VIAL IV STA ×2 (21:27→22:23)
[2019-07-08] MEDS ORDERED: ONDANSETRON 4 MG INJ IV STA (22:10)
[2019-07-08] MEDS ORDERED: ONDANSETRON 4 MG INJ IV PRN (23:00)
[2019-07-08] MEDS ORDERED: SOD CHLORIDE 0.9% 500 ML IV STA (23:17)
[2019-07-08] MEDS ORDERED: CLONIDINE 0.3 MG/24 HR PATCH TRANSDERM SCH (23:30)
[2019-07-08] MEDS ORDERED: SOD CHLORIDE 0.9% 1,000 ML IV SCH (23:32)
[2019-07-08] MEDS ORDERED: GLUCOSE GEL 15 GRAM TUBE BUCCAL PRN (23:45)
[2019-07-08] MEDS ORDERED: GLUCAGON 1 MG INJ IM PRN (23:45)
[2019-07-08] MEDS ORDERED: DEXTROSE 50% 50 ML SYRINGE IV PRN ×2 (23:45)
[2019-07-08] MEDS ORDERED: GLUCOSE GEL 15 GRAM TUBE PO PRN ×2 (23:45)
[2019-07-09] VITALS (23 sets, daily range): BP systolic 91–177; BP diastolic 47–74; PULSE 62–107; RESP 14–20; Ht 152.4 cm; Wt 49.5 kg
[2019-07-09] MEDS ORDERED: NACL 0.9% 3 ML SYG IV SCH
[2019-07-09] MEDS ORDERED: DOCUSATE SODIUM 100 MG CAP PO PRN
[2019-07-09] MEDS ORDERED: MIDODRINE 5 MG TAB PO ONE
[2019-07-09] MEDS ORDERED: BISACODYL (EC) 5 MG TAB PO PRN
[2019-07-09] MEDS ORDERED: INSULIN GLARGINE [LANTus] (100 UNITS/ML) SYG SC ONE
[2019-07-09] MEDS ORDERED: ACETAMINOPHEN 325 MG TAB PO PRN
[2019-07-09] MEDS: ACCU-CHEK XX SCH (02:00)
[2019-07-09] MEDS: INSULIN ASPART [NOVOLOG] 3 ML PEN SC SCH ×6 (02:43→21:00)
[2019-07-09] MEDS: SEVELAMER CARBONATE 0.8 GM PKT PO SCH ×3 (08:00→18:00)
[2019-07-09] MEDS: DULOXETINE 30 MG CAP DR PO SCH (09:00)
[2019-07-09] MEDS: DOXYCYCLINE 100 MG TAB PO SCH ×2 (09:00→21:00)
[2019-07-09] MEDS: LISINOPRIL 20 MG TAB PO SCH (09:00)
[2019-07-09] MEDS: hydrALAzine 20 MG INJ IV PRN (10:27)
[2019-07-09] MEDS: PANTOPRAZOLE (EC) 40 MG TAB PO SCH (15:34)
[2019-07-09] MEDS: FOLIC ACID 1 MG TAB PO SCH (15:41)
[2019-07-09] MEDS: traMADol 50 MG TAB PO PRN (18:32)
[2019-07-09] MEDS ORDERED: HYDROmorphONE 0.5 MG/0.5 ML SYG IV STA (19:10)
[2019-07-09] MEDS: INSULIN GLARGINE [LANTus] (100 UNITS/ML) SYG SC SCH (21:00)
[2019-07-10] VITALS (18 sets, daily range): BP systolic 140–181; BP diastolic 50–81; PULSE 59–78; RESP 11–22
[2019-07-10] MEDS: INSULIN ASPART [NOVOLOG] 3 ML PEN SC SCH ×6 (01:00→20:42)
[2019-07-10] MEDS: ACCU-CHEK XX SCH (02:00)
[2019-07-10] MEDS: ONDANSETRON 4 MG INJ IV PRN ×2 (04:50→20:25)
[2019-07-10] MEDS: hydrALAzine 20 MG INJ IV PRN (04:51)
[2019-07-10] MEDS: SEVELAMER CARBONATE 0.8 GM PKT PO SCH ×3 (08:00→17:08)
[2019-07-10] MEDS ORDERED: hydrALAzine 20 MG INJ IV ONE (09:30)
[2019-07-10] MEDS ORDERED: GELATIN SIZE 100 SPONGE ONE (12:52)
[2019-07-10] MEDS ORDERED: THROMBIN 5000 UNIT (RECOTHROM) VIAL ONE (12:53)
[2019-07-10] MEDS ORDERED: BUPIVACAINE 0.25% (MPF) 30 ML INJ ONE (12:53)
[2019-07-10] MEDS ORDERED: HEPARIN 1000 UNITS/ML 10 ML INJ ONE (12:54)
[2019-07-10] MEDS ORDERED: POLYMYXIN/BACITRACIN 1L IRRIG ONE (12:54)
[2019-07-10] MEDS ORDERED: LIDOCAINE 1% (MPF) 30 ML INJ ONE (12:55)
[2019-07-10] MEDS ORDERED: MIDAZOLAM 1 MG/ML 2 ML INJ ONE (13:38)
[2019-07-10] MEDS ORDERED: FENTAnyl 50 MCG/ML VIAL ONE ×2 (13:38→15:12)
[2019-07-10] MEDS ORDERED: ROPIVACAINE 0.5 % 30 ML VIAL ONE (13:39)
[2019-07-10] MEDS ORDERED: CEFAZOLIN 1 GM INJ ONE (14:44)
[2019-07-10] MEDS ORDERED: LIDOCAINE 2% (SDV) 5 ML INJ ONE (14:44)
[2019-07-10] MEDS ORDERED: ONDANSETRON 4 MG INJ ONE (14:44)
[2019-07-10] MEDS ORDERED: ETOMIDATE 20 MG INJ ONE (14:44)
[2019-07-10] MEDS ORDERED: hydrALAzine 20 MG INJ IV PRN (15:00)
[2019-07-10] MEDS ORDERED: FENTAnyl 50 MCG/ML VIAL IV PRN (15:00)
[2019-07-10] MEDS ORDERED: DIPHENHYDRAMINE 50 MG INJ IV PRN (15:00)
[2019-07-10] MEDS ORDERED: ONDANSETRON 4 MG INJ IV PRN (15:00)
[2019-07-10] MEDS: DULOXETINE 30 MG CAP DR PO SCH (16:43)
[2019-07-10] MEDS: FOLIC ACID 1 MG TAB PO SCH (16:44)
[2019-07-10] MEDS: PANTOPRAZOLE (EC) 40 MG TAB PO SCH (16:44)
[2019-07-10] MEDS: LISINOPRIL 20 MG TAB PO SCH (16:45)
[2019-07-10] MEDS: DOXYCYCLINE 100 MG TAB PO SCH ×2 (16:46→20:17)
[2019-07-10] MEDS: traMADol 50 MG TAB PO PRN ×2 (20:18→23:28)
[2019-07-10] MEDS: INSULIN GLARGINE [LANTus] (100 UNITS/ML) SYG SC SCH (20:42)
[2019-07-10] MEDS ORDERED: morphine 4 MG/ML VIAL IV STA (21:07)
[2019-07-10] MEDS: METOCLOPRAMIDE 10 MG INJ IV PRN (22:42)
[2019-07-11] VITALS (15 sets, daily range): BP systolic 132–186; BP diastolic 55–74; PULSE 62–76; RESP 18–20
[2019-07-11] MEDS: INSULIN ASPART [NOVOLOG] 3 ML PEN SC SCH ×5 (01:00→16:52)
[2019-07-11] MEDS: SEVELAMER CARBONATE 0.8 GM PKT PO SCH ×3 (07:54→17:45)
[2019-07-11] MEDS: METOCLOPRAMIDE 10 MG INJ IV PRN (08:22)
[2019-07-11] MEDS: PANTOPRAZOLE (EC) 40 MG TAB PO SCH (08:24)
[2019-07-11] MEDS: DULOXETINE 30 MG CAP DR PO SCH (08:24)
[2019-07-11] MEDS: DOXYCYCLINE 100 MG TAB PO SCH ×2 (08:24→21:42)
[2019-07-11] MEDS: FOLIC ACID 1 MG TAB PO SCH (08:24)
[2019-07-11] MEDS: LISINOPRIL 20 MG TAB PO SCH (08:25)
[2019-07-11] MEDS ORDERED: SODIUM CHLORIDE 0.9% 1L BAG IV PRN (13:30)
[2019-07-11] MEDS ORDERED: ALBUMIN HUMAN 25% 100 ML IV PRN (13:30)
[2019-07-11] MEDS ORDERED: HEPARIN 1000 UNITS/ML 10 ML INJ CATHETER SCH (13:30)
[2019-07-11] MEDS: INSULIN GLARGINE [LANTus] (100 UNITS/ML) SYG SC SCH (21:49)
[2019-07-12] VITALS: BP 141/63; PULSE 73; RESP 20
[2019-07-12] MEDS ORDERED: INSULIN ASPART [NOVOLOG] 3 ML PEN SC SCH (08:00)
== END 2019-07-12 01:07 | disposition home or self-care (01) | DRG 252 ==
LOC: E/R 21:12 → 6WM 22:32 → SUATTDRO 22:39 → OBSVTOIN 07-10 10:06
PROVIDERS: ADMIT Family Medicine; ATTEND Internal Medicine
PROC: 30233N1 Transfusion of Nonautologous Red Blood Cells into Peripheral Vein, Percutaneous Approach (ICD-10-PCS; 2019-07-09)
PROC: 05WY07Z Revision of Autologous Tissue Substitute in Upper Vein, Open Approach (ICD-10-PCS; principal; 2019-07-10 11:30)
DX: T82.838A Hemorrhage due to vascular prosthetic devices, implants and grafts, initial encounter (principal); N18.6 End stage renal disease; I12.0 Hypertensive chronic kidney disease with stage 5 chronic kidney disease or end stage renal disease; D62 Acute posthemorrhagic anemia; E11.22 Type 2 diabetes mellitus with diabetic chronic kidney disease; Z99.2 Dependence on renal dialysis; T82.7XXA Infection and inflammatory reaction due to other cardiac and vascular devices, implants and grafts, initial encounter
CPT/HCPCS: 36430; 71045; 80048; 80053; 82962; 83036; 83690; 83735; 84100; 84443; 84484; 85025; 85610; 85730; 86706; 86850; 86900; 86901; 86920; 87340; 90935; 93005; 96374; 96375; G0378; C1725; J0360; J0690; J1170; J1644; J1815; J2250; J2270; J2405; J2765; J2795; J3010; J7030; J7040; P9016